=== PATIENT | male | born 1960 ===

== ENCOUNTER 2018-07-12 22:24 | Observation (INO) | payer MEDICAID, OTHER ==
[2018-07-12 22:32] VITALS: BMI 23.5
--- NOTE | 2018-07-12 23:01 | ED PDOC ---
Arrival/HPI - General Chief Complaint: Psychiatric Evaluation Time Seen by Provider: 07/12/18 22:25 Historian: Patient - History of Present Illness Narrative History of Present Illness (Text): 07/12/18 22:55 58 year old male, whose past medical history includes psychoaffective disorder, presents to the emergency department as a transfer from [facility] for psychiatric admission. Patient was being treated for alcohol abuse. Patient was medically cleared and accepted for admission prior to my assessment today. Upon arrival to the ER, patient was noted to have a CT at previous institution, that showed colitis, and patient was being treated with cipro-flagyl. Patient diagnosis of colitis precludes him from medical clearance. Patient denies any complaints. Patient denies any fevers, chills, headache, dizziness, chest pain, shortness of breath, dyspnea on exertion, cough, nausea, vomiting, back pain, neck pain, or any other complaint. 07/12/18 23:27 Time/Duration: Prior to Arrival Symptom Onset: Gradual Symptom Course: Unchanged Past Medical History - Provider Review Nursing Documentation Reviewed: Yes - Psychiatric Hx Substance Use: No Family/Social History - Physician Review Nursing Documentation Reviewed: Yes Family/Social History: No Known Family HX Smoking Status: Former Smoker Hx Alcohol Use: Yes Frequency of alcohol use: Daily Hx Substance Use: No Allergies/Home Meds Allergies/Adverse Reactions: Allergies No Known Allergies Allergy (Verified 07/12/18 22:32) Review of Systems - Physician Review All systems were reviewed & negative as marked: Yes - Review of Systems Constitutional: absent: Fevers, Night Sweats Respiratory: absent: SOB, Cough Cardiovascular: absent: Chest Pain Gastrointestinal: absent: Nausea, Vomiting Musculoskeletal: absent: Back Pain, Neck Pain Neurological: absent: Headache, Dizziness Physical Exam Vital Signs Reviewed: Yes Vital Signs Temp Pulse Resp BP Pulse Ox 07/12/18 22:31 98.7 F 90 18 158/80 H 96 Temperature: Afebrile Blood Pressure: Normal Pulse: Regular Respiratory Rate: Normal Appearance: Positive for: Well-Appearing, Non-Toxic, Comfortable Pain Distress: None Mental Status: Positive for: Alert and Oriented X 3 - Systems Exam Head: Present: Atraumatic, Normocephalic Pupils: Present: PERRL Extroacular Muscles: Present: EOMI Conjunctiva: Present: Normal Mouth: Present: Moist Mucous Membranes Neck: Present: Normal Range of Motion Respiratory/Chest: Present: Clear to Auscultation, Good Air Exchange. No: Respiratory Distress, Accessory Muscle Use Cardiovascular: Present: Regular Rate and Rhythm, Normal S1, S2. No: Murmurs Abdomen: No: Tenderness, Distention, Peritoneal Signs Back: Present: Normal Inspection Upper Extremity: Present: Normal Inspection. No: Cyanosis, Edema Lower Extremity: Present: Normal Inspection. No: Edema Neurological: Present: GCS=15, CN II-XII Intact, Speech Normal Skin: Present: Warm, Dry, Normal Color. No: Rashes Psychiatric: Present: Alert, Oriented x 3, Normal Insight, Normal Concentration Medical Decision Making ED Course and Treatment: 07/12/18 23:02 Impression: 58 year old male transferred for psych admission. Plan: -- Admission Prior Visits: Notes and results from previous visits were reviewed. Progress Notes: 07/12/18 23:27 ?colitis treated from previous insition. suspect likely 2/2 to etoh w/d, but as pt started empirically on antibitoics cannot medically clar. wwill go to medical floor. - Scribe Statement The provider has reviewed the documentation as recorded by the Peteribmatheus Mittal Provider Scribe Attestation: All medical record entries made by the Scribe were at my direction and personally dictated by me. I have reviewed the chart and agree that the record accurately reflects my personal performance of the history, physical exam, medical decision making, and the department course for this patient. I have also personally directed, reviewed, and agree with the discharge instructions and disposition. Disposition/Present on Arrival - Present on Arrival Any Indicators Present on Arrival: No History of DVT/PE: No History of Uncontrolled Diabetes: No Urinary Catheter: No History of Decub. Ulcer: No History Surgical Site Infection Following: None - Disposition Have Diagnosis and Disposition been Completed?: Yes Diagnosis: Colitis, Depression Disposition: HOSPITALIZED Disposition Time: 03:00 Condition: STABLE
--- NOTE | 2018-07-12 23:10 | CP.PCM.HP ---
<AshleighSatya - Last Filed: 07/13/18 00:46> History of Present Illness - History of Present Illness History of Present Illness: PGY-[address] History and Physical [address] Thurston cc: transfer from [facility]--alcohol abuse, abdominal pain [facility] need chart merging Patient is a 58 year old male with past medical history of HTN, alcohol abuse, psychoaffective disorder, depression, suicidal ideation presenting to the ED as a transfer from [facility]. Patient was being treated for alcohol abuse, started on cipro/flagyl at previous institution when CT abdomen/pelvis performed demonstrated colitis. Currently, patient endorses some abdominal pain primarily to the epigastric region as well as LLQ. No fevers/chills, headaches, dizziness, tremors, hallucinations, chest pain, palpitations, sob, cough, diarrhea/constipation, dysuria, or changes in stool. 12 pt ROS reviewed and otherwise negative. PMHx: alcohol abuse, HTN, psychoaffective disorder, suicidal ideation PSHx: denies Allergies: NKDA Home Meds: denies Family Hx: unknown Social Hx: drinks ~1 bottle of vodka daily, last drink was at 4 am yesterday. Denies tobacco or illicit drug use PMD: None Present on Admission - Present on Admission Any Indicators Present on Admission: No Review of Systems - Review of Systems All systems: reviewed and no additional remarkable complaints except Review of Systems: as per HPI Past Patient History - Past Social History Smoking Status: Former Smoker - PSYCHIATRIC Hx Substance Use: No Meds Allergies/Adverse Reactions: Allergies Allergy/AdvReac Type Severity Reaction Status Date / Time No Known Allergies Allergy Verified 07/13/18 17:01 Physical Exam - Constitutional Appears: Non-toxic, No Acute Distress - Head Exam Head Exam: ATRAUMATIC, NORMAL INSPECTION, NORMOCEPHALIC - Eye Exam Eye Exam: EOMI, Normal appearance, PERRL. absent: Scleral icterus Pupil Exam: NORMAL ACCOMODATION - ENT Exam ENT Exam: Mucous Membranes Dry, Normal Exam - Neck Exam Neck exam: Positive for: Full Rom, Normal Inspection. Negative for: Tenderness - Respiratory Exam Respiratory Exam: Clear to Auscultation Bilateral, NORMAL BREATHING PATTERN. absent: Accessory Muscle Use, Rales, Rhonchi, Wheezes, Respiratory Distress, Stridor - Cardiovascular Exam Cardiovascular Exam: REGULAR RHYTHM, +S1, +S2 - GI/Abdominal Exam GI & Abdominal Exam: Guarding (minimal voluntary guarding), Normal Bowel Sounds, Soft, Tenderness (epigastric; mild TTP RUQ, LLQ). absent: Distended, Firm, Rebound, Rigid - Extremities Exam Extremities exam: Positive for: normal capillary refill, normal inspection, pedal pulses present. Negative for: calf tenderness, pedal edema - Back Exam Back exam: NORMAL INSPECTION - Neurological Exam Neurological exam: Alert, CN II-XII Intact, Oriented x3 Additional comments: no tremors noted - Skin Skin Exam: Dry, Intact, Normal Color, Warm Results - Vital Signs Recent Vital Signs: Last Vital Signs Temp 98.7 F 07/12/18 22:31 Pulse 90 07/12/18 22:31 Resp 18 07/12/18 22:31 BP 158/80 H 07/12/18 22:31 Pulse Ox 96 07/12/18 22:31 Assessment & Plan - Assessment and Plan (Free Text) Assessment: 58 year old male with pmhx of alcohol abuse, HTN, psychoaffective disorder, depression, suicidal ideation presenting to ED as transfer from [facility] unit, being treated for alcohol abuse and abdominal pain with image findings of colitis. Plan: Abdominal pain -likely 2/2 colitis -Pertinent lab values on [facility] admission (07/12) -Lipase: 368 -AST/ALT: 135/63 -UDS negative -alcohol < 10 -Lipase on current admission: 380 -amylase wnl -trop x 1 negative -NS @ 100 cc/hr -zofran 4 mg IVP q6 prn -protonix 40 mg IVP daily -c/w cipro/flagyl for empiric abx coverage (Day 2) -CT abdomen/pelvis with oral and IV contrast (07/12): wall thickening of the R colon, correlate clinically for colitis. Hypoattenuation of the liver compatible with hepatic steatosis. Gallbladder distention, with no evident calcified gallstones. Urinary bladder distention. -CXR (07/12): no acute findings -EKG (07/12): accelerated junctional rhythm @ [address] depression, probably normal -repeat EKG Hepatic steatosis -AST/ALT 135/63 -CT findings as noted above -f/u abdominal u/s -f/u hepatitis panel Alcohol abuse -serum alcohol < 10 -no active signs of withdrawal on PE -CIWA protocol -neuro checks, seizure precautions -thiamine/MV/folate -NS @ 100 cc/hr -ativan 1 mg IVP q6 prn -continue to monitor for signs of withdrawal -alcohol cessation counseling HTN -BP 158/80 on admission -not on any home meds -continue to monitor Hx of Depression, suicidal ideation -Psych (Dr. Regalado) consulted -1:1 ordered PPx, Diet, Disposition -DVT ppx: scds -GI ppx: protonix 40 mg IVP daily -Diet: HHD <Tamika Thurston - Last Filed: 07/13/18 20:10> Results - Vital Signs Recent Vital Signs: Last Vital Signs Temp 98.7 F 07/13/18 07:00 Pulse 88 07/13/18 07:00 Resp 20 07/13/18 07:00 BP 147/81 07/13/18 07:00 Pulse Ox 96 07/13/18 07:00 - Labs Result Diagrams: 07/13/18 06:10 07/13/18 06:10 Labs: Laboratory Results - last 24 hr 07/12/18 07/12/18 07/13/18 23:41 23:41 06:10 WBC 4.5 RBC 4.43 Hgb 12.8 L Hct 38.4 L MCV 86.7 MCH 28.9 MCHC 33.3 RDW 13.2 Plt Count 125 MPV 10.1 Neut % (Auto) 59.9 Lymph % (Auto) 29.0 Rains % (Auto) 9.1 H Eos % (Auto) 1.6 Baso % (Auto) 0.4 Lymph # (Auto) 1.3 Rains # (Auto) 0.4 Eos # (Auto) 0.1 Baso # (Auto) 0.02 Absolute Neuts (auto) 2.70 Sodium Potassium Chloride Carbon Dioxide Anion Gap BUN Creatinine Est GFR ( Amer) Est GFR (Non-Af Amer) Random Glucose Hemoglobin A1c Calcium Phosphorus Magnesium Total Bilirubin AST ALT Alkaline Phosphatase Troponin I < 0.01 Total Protein Albumin Globulin Albumin/Globulin Ratio Triglycerides Cholesterol LDL Cholesterol Direct HDL Cholesterol Amylase 109 Lipase 380 H Hepatitis A IgM Ab Negative Hep Bs Antigen Negative Hep B Core IgM Ab Negative Hepatitis C Antibody Negative 07/13/18 07/13/18 06:10 06:10 WBC RBC Hgb Hct MCV MCH MCHC RDW Plt Count MPV Neut % (Auto) Lymph % (Auto) Rains % (Auto) Eos % (Auto) Baso % (Auto) Lymph # (Auto) Rains # (Auto) Eos # (Auto) Baso # (Auto) Absolute Neuts (auto) Sodium 134 Potassium 3.6 Chloride 98 Carbon Dioxide 28 Anion Gap 12 BUN 12 Creatinine 0.8 Est GFR ( Amer) > 60 Est GFR (Non-Af Amer) > 60 Random Glucose 101 Hemoglobin A1c 6.0 Calcium 8.5 Phosphorus 3.3 Magnesium 1.7 Total Bilirubin 0.7 AST 114 H ALT 71 H Alkaline Phosphatase 69 Troponin I Total Protein 6.3 Albumin 3.7 Globulin 2.6 Albumin/Globulin Ratio 1.4 Triglycerides 55 Cholesterol 171 LDL Cholesterol Direct 50 HDL Cholesterol 123 H Amylase Lipase Hepatitis A IgM Ab Hep Bs Antigen Hep B Core IgM Ab Hepatitis C Antibody Attending/Attestation - Attestation I have personally seen and examined this patient.: Yes I have fully participated in the care of the patient.: Yes I have reviewed all pertinent clinical information: Yes Notes (Text): 07/13/18 20:09 seen and examined. Discussed with resident. A&P as above. Transferred from [facility]. Has DX of colitis. Check record at [facility]. Add lipase.
[2018-07-12] MEDS ORDERED: Multivitamin (MVI) 10 ML, Thiamine 100 MG, Folic Acid 1 MG in Sodium Chloride 0.9% 1,00... IV ONE (23:11)
[2018-07-12] MEDS ORDERED: metroNIDAZOLE IV 500 mg/100 ml 500 MG/100 ML BAG IVPB SCH (23:15)
[2018-07-12] MEDS ORDERED: Ciprofloxacin 400mg/200ml D5W 400 MG/200 ML BAG IVPB SCH (23:15)
[2018-07-13 00:03] LABS: AMYLASE 109 U/L (35-125); LIPASE 380 U/L (23-300)
[2018-07-13 00:16] LABS: TROPONIN I < 0.01 ng/mL
[2018-07-13] MEDS ORDERED: Pneumococcal 23-Valent Vaccine IM ONE (03:20)
[2018-07-13] MEDS ORDERED: Pantoprazole 40 mg EC Tab PO SCH (06:00)
[2018-07-13 06:57] LABS: BASO # 0.02 K/mm3 (0.0-2.0); BASO % 0.4 % (0.0-3.0); EOS # 0.1 (0.0-0.7); EOS % 1.6 % (1.5-5.0); HEMOGLOBIN 12.8 g/dL (14.0-18.0); LYMPH # 1.3 (1.2-3.4); MEAN CELL VOLUME 86.7 fl (80.0-105.0); MEAN CORPUSCULAR HEMOGLOBIN 28.9 pg (25.0-35.0); MEAN CORPUSCULAR HGB CONC 33.3 g/dl (31.0-37.0); MEAN PLATELET VOLUME 10.1 fl (7.0-11.0); MONO # 0.4 (0.1-0.6); MONO % 9.1 % (1.0-6.0); RBC 4.43 10^6/uL (3.5-6.1); RED CELL DISTRIBUTION WIDTH 13.2 % (11.5-14.5); WHITE BLOOD COUNT 4.5 10^3/uL (4.5-11.0)
[2018-07-13 07:10] LABS: ALB/GLOB RATIO 1.4 (1.1-1.8); ALBUMIN 3.7 g/dL (3.0-4.8); ALT/SGPT 71 U/L (7-56); AST/SGOT 114 U/L (17-59); BLOOD UREA NITROGEN 12 mg/dL (7-21); CALCIUM 8.5 mg/dL (8.4-10.5); GFR NON-AFRICAN AMERICAN > 60
[2018-07-13 07:20] LABS: LDL CHOLESTEROL 50 mg/dL (0-129)
--- NOTE | 2018-07-13 07:21 | CP.PCM.PN ---
Subjective - Date & Time of Evaluation Date of Evaluation: 07/13/18 Time of Evaluation: 07:21 Objective - Vital Signs/Intake and Output Vital Signs (last 24 hours): Temp Pulse Resp BP Pulse Ox 98.2 F 80 18 148/86 100 07/13/18 01:59 07/13/18 01:59 07/13/18 03:10 07/13/18 01:59 07/13/18 01:59 Intake and Output: 07/13/18 07/13/18 06:59 18:59 Intake Total 400 Balance 400 - Medications Medications: Current Medications Cyanocobalamin (Vitamin B12 1000 Mcg Tab) 1,000 mcg PO DAILY [facility] Folic Acid (Folic Acid) 1 mg PO DAILY [facility] Metronidazole (Flagyl) 500 mg in 100 mls @ 100 mls/hr IVPB Q8 [facility]; Protocol Last Admin: 07/13/18 01:30 Dose: 100 mls/hr Multivitamins/Vitamin C 10 ml/Thiamine HCl 100 mg/ Folic Acid 1 mg/ Sodium Chloride 1,011.2 mls @ 100 mls/hr IV .Q10H7M ONE Stop: 07/13/18 09:17 Last Admin: 07/13/18 02:00 Dose: 100 mls/hr Lorazepam (Ativan) 1 mg IVP Q6H PRN; Protocol PRN Reason: Symptoms of alcohol withdrawl Multivitamins (Thera Tab) 1 tab PO DAILY [facility] Ondansetron HCl (Zofran Inj) 4 mg IVP Q6H PRN PRN Reason: Nausea/Vomiting Pantoprazole Sodium (Protonix Ec Tab) 40 mg PO 0600 [facility] Last Admin: 07/13/18 05:39 Dose: 40 mg - Labs Labs: 07/13/18 06:10 07/13/18 06:10
[2018-07-13 07:43] LABS: HDL CHOLESTEROL 123 mg/dL (29-60)
[2018-07-13 09:54] VITALS: BP 147/81; PULSE 88; RESP 20; TEMP 98.7; O2SAT 96
[2018-07-13] MEDS ORDERED: Multivitamin Therapeutic Tab PO SCH (10:00)
[2018-07-13] MEDS ORDERED: cefTRIAXone 1 gm 1 GM/100 ML BAG IVPB SCH (10:00)
--- NOTE | 2018-07-13 10:59 | US ---
Date of service: 07/13/2018 HISTORY: elevated LFTs ;EtOH abuse COMPARISON: None. TECHNIQUE: Sonographic evaluation of the abdomen. FINDINGS: LIVER: Measures 19.5 cm. Increased echogenicity of the liver parenchyma. No mass. No intrahepatic bile duct dilatation. GALLBLADDER: Unremarkable. No gallstones. COMMON BILE DUCT: Measures 5.7 mm. No stones. No dilatation. PANCREAS: Not visualized RIGHT KIDNEY: Measures 11.4 x 4.2 x 7.1cm. Normal echogenicity. No calculus, mass, or hydronephrosis. LEFT KIDNEY: Measures 12.1 x 6.6 x 6.1cm. Normal echogenicity. No calculus, mass, or hydronephrosis. SPLEEN: Normal in size and contour. No mass. 8.8 x 4.4 x 3.9 cm AORTA: Not visualized IVC: Not visualized OTHER FINDINGS: None. IMPRESSION: Unremarkable abdominal sonogram.
[2018-07-13 11:26] LABS: HEPATITIS B SURFACE AG Negative (NEGATIVE)
[2018-07-13 11:32] LABS: HEPATITIS A IGM NEGATIVE (NEGATIVE); HEPATITIS B CORE AB NEGATIVE (NEGATIVE)
[2018-07-13 11:43] LABS: HEPATITIS C ANTIBODY NEGATIVE (NEGATIVE)
--- NOTE | 2018-07-13 12:20 | CP.PCM.CON ---
History of Present Illness - History of Present Illness History of Present Illness: 58 year old male with PMH of HTN, alcohol abuse, psychoaffective disorder, depression was brought in from [facility] as a transfer for epigastric abdominal pain and lower abdominal pain. The patient drinks alcohol everyday. He was found to have pancreatitis at [facility] and was also noted to have possible colitis on CT A/P there. The patient states that the abdominal pain is still present but better, had nausea but is also better, no fever or chills, no chest pain, no SOB, no headache or dizziness, no diarrhea, no dysuria. Infectious Diseases consult is requested to further evaluate and manage. Review of Systems - Review of Systems All systems: reviewed and no additional remarkable complaints except (as per HPI) Past Patient History - Past Social History Smoking Status: Former Smoker - CARDIAC Hx Hypertension: Yes - MUSCULOSKELETAL/RHEUMATOLOGICAL Hx Falls: No - PSYCHIATRIC Hx Substance Use: No Meds Allergies/Adverse Reactions: Allergies Allergy/AdvReac Type Severity Reaction Status Date / Time No Known Allergies Allergy Verified 07/12/18 22:32 - Medications Medications: Current Medications Cyanocobalamin (Vitamin B12 1000 Mcg Tab) 1,000 mcg PO DAILY [facility] Folic Acid (Folic Acid) 1 mg PO DAILY [facility] Metronidazole (Flagyl) 500 mg in 100 mls @ 100 mls/hr IVPB Q8 [facility]; Protocol Last Admin: 07/13/18 01:30 Dose: 100 mls/hr Multivitamins/Vitamin C 10 ml/Thiamine HCl 100 mg/ Folic Acid 1 mg/ Sodium Chloride 1,011.2 mls @ 100 mls/hr IV .Q10H7M ONE Stop: 07/13/18 09:17 Last Admin: 07/13/18 02:00 Dose: 100 mls/hr Lorazepam (Ativan) 1 mg IVP Q6H PRN; Protocol PRN Reason: Symptoms of alcohol withdrawl Multivitamins (Thera Tab) 1 tab PO DAILY [facility] Ondansetron HCl (Zofran Inj) 4 mg IVP Q6H PRN PRN Reason: Nausea/Vomiting Pantoprazole Sodium (Protonix Ec Tab) 40 mg PO 0600 [facility] Last Admin: 07/13/18 05:39 Dose: 40 mg Physical Exam - Constitutional Appears: No Acute Distress, Chronically Ill - Head Exam Head Exam: NORMAL INSPECTION - ENT Exam ENT Exam: Mucous Membranes Moist - Neck Exam Neck exam: Negative for: Lymphadenopathy, Meningismus - Respiratory Exam Respiratory Exam: Decreased Breath Sounds - Cardiovascular Exam Cardiovascular Exam: +S1, +S2 - GI/Abdominal Exam GI & Abdominal Exam: Soft. absent: Tenderness Results - Vital Signs Recent Vital Signs: Last Vital Signs Temp 98.2 F 07/13/18 01:59 Pulse 80 07/13/18 01:59 Resp 18 07/13/18 03:10 BP 148/86 07/13/18 01:59 Pulse Ox 100 07/13/18 01:59 - Labs Result Diagrams: 07/13/18 06:10 07/13/18 06:10 Labs: Laboratory Results - last 24 hr 07/12/18 23:41 Troponin I < 0.01 Amylase 109 Lipase 380 H Assessment & Plan - Assessment and Plan (Free Text) Plan: Assessment Acute pancreatitis, probably alcoholic R/O colitis HTN alcohol abuse psychoaffective disorder depression Plan started Rocephin and Flagyl follow up blood cx reviewed CT A/P - patient does not have diarrhea monitor abdominal pain
--- NOTE | 2018-07-13 13:20 | CP.PCM.DIS ---
<Flip Bernabe - Last Filed: 07/13/18 21:27> Provider - Provider Date of Admission: 07/12/18 22:52 Attending physician: Sean Andre MD Consults: 07/12/18 23:09 Psychiatry Consult Routine Comment: Consulting Provider: Cynthia Regalado Consulting Physician: Cynthia Regalado Reason for Consult: depression and suicidal ideations 07/12/18 23:22 Infectious Disease Consult Routine Comment: Consulting Provider: Solis Hannah Consulting Physician: Solis Hannah Reason for Consult: colitis on CT 07/13/18 03:27 Social Work Referral Routine Comment: DRINKS VODKA PER DAY Physician Instructions: Reason For Exam: FOR ALCOHOL COUNSELING Time Spent in preparation of Discharge (in minutes): 45 Diagnosis - Discharge Diagnosis (1) Colitis Status: Acute (2) Depression Status: Chronic (3) Alcohol abuse Status: Chronic Hospital Course - Lab Results Lab Results: Most Recent Lab Values WBC 4.5 10^3/uL (4.5-11.0) 07/13/18 06:10 RBC 4.43 10^6/uL (3.5-6.1) 07/13/18 06:10 Hgb 12.8 g/dL (14.0-18.0) L 07/13/18 06:10 Hct 38.4 % (42.0-52.0) L 07/13/18 06:10 MCV 86.7 fl (80.0-105.0) 07/13/18 06:10 MCH 28.9 pg (25.0-35.0) 07/13/18 06:10 MCHC 33.3 g/dl (31.0-37.0) 07/13/18 06:10 RDW 13.2 % (11.5-14.5) 07/13/18 06:10 Plt Count 125 10^3/uL (120.0-450.0) 07/13/18 06:10 MPV 10.1 fl (7.0-11.0) 07/13/18 06:10 Neut % (Auto) 59.9 % (50.0-68.0) 07/13/18 06:10 Lymph % (Auto) 29.0 % (22.0-35.0) 07/13/18 06:10 [place] % (Auto) 9.1 % (1.0-6.0) H 07/13/18 06:10 Eos % (Auto) 1.6 % (1.5-5.0) 07/13/18 06:10 Baso % (Auto) 0.4 % (0.0-3.0) 07/13/18 06:10 Lymph # (Auto) 1.3 (1.2-3.4) 07/13/18 06:10 [place] # (Auto) 0.4 (0.1-0.6) 07/13/18 06:10 Eos # (Auto) 0.1 (0.0-0.7) 07/13/18 06:10 Baso # (Auto) 0.02 K/mm3 (0.0-2.0) 07/13/18 06:10 Absolute Neuts (auto) 2.70 (1.4-6.5) 07/13/18 06:10 Sodium 134 mmol/L (132-148) 07/13/18 06:10 Potassium 3.6 mmol/L (3.6-5.0) 07/13/18 06:10 Chloride 98 mmol/L (98-107) 07/13/18 06:10 Carbon Dioxide 28 mmol/L (21-33) 07/13/18 06:10 Anion Gap 12 (10-20) 07/13/18 06:10 BUN 12 mg/dL (7-21) 07/13/18 06:10 Creatinine 0.8 mg/dl (0.8-1.5) 07/13/18 06:10 Est GFR ( Amer) > 60 07/13/18 06:10 Est GFR (Non-Af Amer) > 60 07/13/18 06:10 Random Glucose 101 mg/dL (70-110) 07/13/18 06:10 Hemoglobin A1c 6.0 % (4.2-6.5) 07/13/18 06:10 Calcium 8.5 mg/dL (8.4-10.5) 07/13/18 06:10 Phosphorus 3.3 mg/dL (2.5-4.5) 07/13/18 06:10 Magnesium 1.7 mg/dL (1.7-2.2) 07/13/18 06:10 Total Bilirubin 0.7 mg/dL (0.2-1.3) 07/13/18 06:10 AST 114 U/L (17-59) H 07/13/18 06:10 ALT 71 U/L (7-56) H 07/13/18 06:10 Alkaline Phosphatase 69 U/L (38-126) 07/13/18 06:10 Troponin I < 0.01 ng/mL 07/12/18 23:41 Total Protein 6.3 g/dL (5.8-8.3) 07/13/18 06:10 Albumin 3.7 g/dL (3.0-4.8) 07/13/18 06:10 Globulin 2.6 gm/dL 07/13/18 06:10 Albumin/Globulin Ratio 1.4 (1.1-1.8) 07/13/18 06:10 Triglycerides 55 mg/dL (35-160) 07/13/18 06:10 Cholesterol 171 mg/dL (130-200) 07/13/18 06:10 LDL Cholesterol Direct 50 mg/dL (0-129) 07/13/18 06:10 HDL Cholesterol 123 mg/dL (29-60) H 07/13/18 06:10 Amylase 109 U/L (35-125) 07/12/18 23:41 Lipase 380 U/L (23-300) H 07/12/18 23:41 Hepatitis A IgM Ab Negative (NEGATIVE) 07/12/18 23:41 Hep Bs Antigen Negative (NEGATIVE) 07/12/18 23:41 Hep B Core IgM Ab Negative (NEGATIVE) 07/12/18 23:41 Hepatitis C Antibody Negative (NEGATIVE) 07/12/18 23:41 - Hospital Course Hospital Course: Patient is a 58 year old male with past medical history of HTN, alcohol abuse, psychoaffective disorder, depression, suicidal ideation presenting to the ED as a transfer from [facility]. Patient was accepted to the psychiatric unit at [facility] but there were no beds available. Patient was being treated for alcohol abuse, started on cipro/flagyl for colitis that was showed on abdomen/pelvis CT scan. Patient was continued on cipro and flagyl. Patient was kept 1:1 observation for his suicidal ideation which was discontinued prior to discharge. Patient's abdominal pain resolved upon discharge. Patient was started on daily MV, folate, and thiamine. Patient was started on 7 days course of Flagyl and Vantin. Patient is medically stable to be discharged to voluntary psychiatric unit. Discharge Exam - Additional Findings Additional findings: - Constitutional Appears: Non-toxic, No Acute Distress - Head Exam Head Exam: ATRAUMATIC, NORMAL INSPECTION, NORMOCEPHALIC - Eye Exam Eye Exam: EOMI, Normal appearance, PERRL. absent: Scleral icterus Pupil Exam: NORMAL ACCOMODATION - ENT Exam ENT Exam: Mucous Membranes Dry, Normal Exam - Neck Exam Neck exam: Positive for: Full Rom, Normal Inspection. Negative for: Tenderness - Respiratory Exam Respiratory Exam: Clear to Auscultation Bilateral, NORMAL BREATHING PATTERN. absent: Accessory Muscle Use, Rales, Rhonchi, Wheezes, Respiratory Distress, Stridor - Cardiovascular Exam Cardiovascular Exam: REGULAR RHYTHM, +S1, +S2 - GI/Abdominal Exam GI & Abdominal Exam: Normal Bowel Sounds, Soft, No tenderness to palpation. absent: Distended, Firm, Rebound, Rigid - Extremities Exam Extremities exam: Positive for: normal capillary refill, normal inspection, pedal pulses present. Negative for: calf tenderness, pedal edema - Back Exam Back exam: NORMAL INSPECTION - Neurological Exam Neurological exam: Alert, CN II-XII Intact, Oriented x3 Additional comments: no tremors noted Discharge Plan - Follow Up Plan Condition: STABLE Disposition: DISCHARGE TO PSYCH HOSPITAL Instructions: Depression, Adult (DC), Colitis (DC) Additional Instructions: - Take Vantin 200mg twice daily for 7 more days and Flagyl 500mg 3 times daily for 7 more days. - Take multivitamin, folate, and thiamine daily. - Resume all other home medications as prescribed by your doctor. - Follow up with your primary care doctor within 3-5 days of discharge from the hospital. - Stop drinking alcohol as we have discussed. - Return to the emergency room for newly or worsening symptoms. <Sean Andre - Last Filed: 07/14/18 11:59> Provider - Provider Date of Admission: 07/12/18 22:52 Attending physician: Sean Andre MD Consults: 07/12/18 23:09 Psychiatry Consult Routine Comment: Consulting Provider: Cynthia Regalado Consulting Physician: Cynthia Regalado Reason for Consult: depression and suicidal ideations 07/12/18 23:22 Infectious Disease Consult Routine Comment: Consulting Provider: Solis Hannah Consulting Physician: Solis Hannah Reason for Consult: colitis on CT 07/13/18 03:27 Social Work Referral Routine Comment: DRINKS VODKA PER DAY Physician Instructions: Reason For Exam: FOR ALCOHOL COUNSELING Hospital Course - Lab Results Lab Results: Micro Results 07/13/18 08:50 Blood-Venous Blood Culture - Preliminary NO GROWTH AFTER 24 HOURS 07/13/18 08:30 Blood-Venous Blood Culture - Preliminary NO GROWTH AFTER 24 HOURS Most Recent Lab Values WBC 4.5 10^3/uL (4.5-11.0) 07/13/18 06:10 RBC 4.43 10^6/uL (3.5-6.1) 07/13/18 06:10 Hgb 12.8 g/dL (14.0-18.0) L 07/13/18 06:10 Hct 38.4 % (42.0-52.0) L 07/13/18 06:10 MCV 86.7 fl (80.0-105.0) 07/13/18 06:10 MCH 28.9 pg (25.0-35.0) 07/13/18 06:10 MCHC 33.3 g/dl (31.0-37.0) 07/13/18 06:10 RDW 13.2 % (11.5-14.5) 07/13/18 06:10 Plt Count 125 10^3/uL (120.0-450.0) 07/13/18 06:10 MPV 10.1 fl (7.0-11.0) 07/13/18 06:10 Neut % (Auto) 59.9 % (50.0-68.0) 07/13/18 06:10 Lymph % (Auto) 29.0 % (22.0-35.0) 07/13/18 06:10 [place] % (Auto) 9.1 % (1.0-6.0) H 07/13/18 06:10 Eos % (Auto) 1.6 % (1.5-5.0) 07/13/18 06:10 Baso % (Auto) 0.4 % (0.0-3.0) 07/13/18 06:10 Lymph # (Auto) 1.3 (1.2-3.4) 07/13/18 06:10 [place] # (Auto) 0.4 (0.1-0.6) 07/13/18 06:10 Eos # (Auto) 0.1 (0.0-0.7) 07/13/18 06:10 Baso # (Auto) 0.02 K/mm3 (0.0-2.0) 07/13/18 06:10 Absolute Neuts (auto) 2.70 (1.4-6.5) 07/13/18 06:10 Sodium 134 mmol/L (132-148) 07/13/18 06:10 Potassium 3.6 mmol/L (3.6-5.0) 07/13/18 06:10 Chloride 98 mmol/L (98-107) 07/13/18 06:10 Carbon Dioxide 28 mmol/L (21-33) 07/13/18 06:10 Anion Gap 12 (10-20) 07/13/18 06:10 BUN 12 mg/dL (7-21) 07/13/18 06:10 Creatinine 0.8 mg/dl (0.8-1.5) 07/13/18 06:10 Est GFR ( Amer) > 60 07/13/18 06:10 Est GFR (Non-Af Amer) > 60 07/13/18 06:10 Random Glucose 101 mg/dL (70-110) 07/13/18 06:10 Hemoglobin A1c 6.0 % (4.2-6.5) 07/13/18 06:10 Calcium 8.5 mg/dL (8.4-10.5) 07/13/18 06:10 Phosphorus 3.3 mg/dL (2.5-4.5) 07/13/18 06:10 Magnesium 1.7 mg/dL (1.7-2.2) 07/13/18 06:10 Total Bilirubin 0.7 mg/dL (0.2-1.3) 07/13/18 06:10 AST 114 U/L (17-59) H 07/13/18 06:10 ALT 71 U/L (7-56) H 07/13/18 06:10 Alkaline Phosphatase 69 U/L (38-126) 07/13/18 06:10 Troponin I < 0.01 ng/mL 07/12/18 23:41 Total Protein 6.3 g/dL (5.8-8.3) 07/13/18 06:10 Albumin 3.7 g/dL (3.0-4.8) 07/13/18 06:10 Globulin 2.6 gm/dL 07/13/18 06:10 Albumin/Globulin Ratio 1.4 (1.1-1.8) 07/13/18 06:10 Triglycerides 55 mg/dL (35-160) 07/13/18 06:10 Cholesterol 171 mg/dL (130-200) 07/13/18 06:10 LDL Cholesterol Direct 50 mg/dL (0-129) 07/13/18 06:10 HDL Cholesterol 123 mg/dL (29-60) H 07/13/18 06:10 Amylase 109 U/L (35-125) 07/12/18 23:41 Lipase 380 U/L (23-300) H 07/12/18 23:41 Hepatitis A IgM Ab Negative (NEGATIVE) 07/12/18 23:41 Hep Bs Antigen Negative (NEGATIVE) 07/12/18 23:41 Hep B Core IgM Ab Negative (NEGATIVE) 07/12/18 23:41 Hepatitis C Antibody Negative (NEGATIVE) 07/12/18 23:41 Attending/Attestation - Attestation I have personally seen and examined this patient.: Yes I have fully participated in the care of the patient.: Yes I have reviewed all pertinent clinical information, including history, physical exam and plan: Yes Notes (Text): 07/14/18 11:57 Medical record note made by the resident after discussion with my direction and input after the patient was personally seen and examined by me. I have reviewed the chart and agree that the record accurately reflects by personal performance of the history, physical exam, data review, and medical decision-making, in the course for the patient. I have also personally directed the plan of care. 58 yrs old male with PMH of alcohol abuse and depression was admitted to medical floor for possible colitis. He is not having any abdominal pain, tolerating regular food. We will switch him to oral antibiotics levofloxacin and metronidazole. Elevated LFT are due to alcohol abuse. Patient is cleared medically and will be transferred to inpatient Psychiatry. Case was discuused with .
--- NOTE | 2018-07-13 15:04 | CON ---
DATE OF CONSULTATION: 07/13/2018 HISTORY OF PRESENT ILLNESS: In short, the patient is a 58-year-old male with history of mood spectrum disorder, also alcohol use disorder. The patient was transferred from [facility] for evaluation of depression, also possible suicidal ideation, and psych admission, brought in the emergency room based on CT scan of the abdomen, the patient was found to have colitis and the patient require medical admission. This appeals writer is following the patient on the medical side today. The patient presented to be alert, depressed. The patient reported that his withdrawal symptoms are a little bit better. The patient was drinking about 1 liter of vodka a day. The patient reported that he was drinking because he was feeling very depressed. He was drinking also because he wanted his heart to stop beating, and indirectly, the patient wanted to kill himself, on top of that for the past week, the patient was thinking either to jump in front of the traffic or drink himself to . The patient reported no psych admission and no suicidal attempts, but had suicidal ideation in 2010 when the patient wanted to kill himself by slitting his throat with a knife or jump in front of the traffic. During the interview, the patient also reported that recently he was feeling that he wanted to kill himself by gunshot, he was thinking to grab a gun from police investigator and shoot himself or act in a way that he will be killed by police. That is why the patient came to the hospital looking for help for his suicidal ideation, and during the interview, the patient contracted for safety. The patient reported that right now he feels comfortable and wants to get treatment for his depression as well as for alcohol abuse, and he is willing to go to inpatient rehab. PHYSICAL EXAMINATION: VITAL SIGNS: Reviewed. Temperature 98.7, pulse is 88, blood pressure 147/81, respirations 20, and oxygen saturation is 96. MEDICATIONS: Reviewed. The patient is on Rocephin, vitamin B12, folic acid, Ativan 1 mg IV push every 6 hours p.r.n., Flagyl, Zofran, and Protonix. This appeals writer will implement Sonata at the nighttime as needed for insomnia. MENTAL STATUS EXAMINATION: The patient presented to be alert and oriented, pleasant. Mood described as depressed. Affect was constricted, but reactive and mood congruent. Thought process seems to be circumstantial. Thought content, the patient denied visual, auditory, or tactile hallucinations. Denied paranoid ideation. The patient denied thoughts of harming himself during the interview, but prior to coming to the hospital, the patient had suicidal ideation with a plan to grab a gun from the police and kill himself or jump in front of the traffic, but the patient reported that he did not have any intent or he does not want his act to effect others, that is why he did not act on his thoughts. The patient denied access to guns. Insight and judgment seemed to be improving. Impulses are fairly controlled as of now. IMPRESSION: Rule out major depressive disorder, rule out substance-induced mood disorder. The patient has long history of alcohol use disorder. The patient also has withdrawal symptoms, which are under control now. PLAN: The patient will continue staying on the medical side for full medical clearance. Multivitamins, thiamine, and folic acid started. The patient might benefit from psych admission. This appeals writer will implement Sonata at the nighttime as well as Celexa for his depression. Whenever the patient is clear from the medical side, we will transfer the patient to the Psychiatric Inpatient Unit. Should you have any questions give me a call back. Thank you very much for letting me participate in care of your patient. Cynthia Regalado MD
--- NOTE | 2018-07-13 23:58 | CARD ---
APPROVED REPORT Date of service: 07/12/2018 EKG Measurement Heart [id number] <Conclusion> Normal sinus rhythm Normal ECG
[2018-07-14] MEDS ORDERED: Cefpodoxime (Vantin) 200 mg Tab PO SCH (10:00)
== END 2018-07-13 16:03 ==
LOC: ED 22:24 → INTOOBSV 22:52 → ERH 22:52 → UNDOADMIN 22:55 → ERH 07-13 01:21 → 3RNO 07-13 02:30
PROVIDERS: ADMIT Internal Medicine; ATTEND Internal Medicine
DX: K52.9 Noninfective gastroenteritis and colitis, unspecified (principal); K85.90 Acute pancreatitis without necrosis or infection, unspecified; F32.9 Major depressive disorder, single episode, unspecified; F10.10 Alcohol abuse, uncomplicated; I10 Essential (primary) hypertension; R45.851 Suicidal ideations; Z87.891 Personal history of nicotine dependence
CPT/HCPCS: 36415; 76700; 80053; 80061; 80074; 82150; 83036; 83690; 83735; 84100; 84484; 85025; 87040; 93005; 96365; 96375; 99284; G0378; J0696; J0744; J3411; J7030

== ENCOUNTER 2018-07-13 16:05 | Inpatient (IN) | payer MEDICAID, OTHER ==
[2018-07-12 22:32] VITALS: BMI 23.5
[2018-07-13] MEDS: Cefpodoxime (Vantin) 200 mg Tab PO SCH (18:38)
--- NOTE | 2018-07-13 21:34 | PCM.BM ---
<PolyJania - Last Filed: 07/13/18 21:29> Treatment Plan Problems - Problems identified on initial assessmt SUICIDALIDEATION Date Initiated: 07/13/18 Time Initiated: 21:34 Assessment reference: NA Status: Active FEELINGS OF WORTHELESSNESS Date Initiated: 07/13/18 Time Initiated: 21:35 Assessment reference: NA Status: Active HOPELESNESS/HELPLESSNESS Date Initiated: 07/13/18 Time Initiated: 21:36 Assessment reference: NA Status: Active ALTERD SLEEP PATTERN Date Initiated: 07/13/18 Time Initiated: 21:37 Assessment reference: NA Status: Active MEDICATIONNON ADHERENCE Date Initiated: 07/13/18 Time Initiated: 21:38 Assessment reference: NA Status: Active INEFFECTIVE COPING Date Initiated: 07/13/18 Time Initiated: 21:39 Assessment reference: NA Status: Active Treatment assets and liabiliti Patient Assests: adapts well, ADL independent, good support system, negotiates basic needs Patient Liabilities: substance abuse, language/speech - Milieu Protocol Maintain good personal hygiene: daily Encourage regular showers, daily Remind patient to perform daily oral care, daily Assist patient to perform ADL's Maintain personal safety: every shift Educate patient to report safety concerns to staff, every shift Monitor environment for contraband/sharps Medication safety: Monitor for expected outcome, potential side effects: every shift, Assess barriers to learning: every shift, Assess readiness for medication education: every shift Family Contact - Goals for Treatment Patient goals for treatment: TO BECOME A NORMAL PERSON AND HAVE A DIFFERENT OUTLOOK IN LIFE Discharge/Continuing Care - Education Needs Education Needs: Patient Medication, Patient Diagnosis/Disease Process, Patient Coping Skills, Patient Community resources, Patient Personal Hygiene/Grooming, Patient Aftercare Safety Plan - Discharge Discharge Criteria: Tolerates medication w/o severe side effects, Free of paranoid thoughts, Normal sleep pattern, Ability to care for self <Roland Preciado - Last Filed: 07/14/18 11:12> - Diagnosis (1) Alcohol abuse Status: Chronic Interventions: group, milieu and supportive tx Appreciate f/u by Dr. Bernabe on 07/14/18 Celexa 10 mg po dailly for depression Ativan 2 mg po QID for alcohol withdrawal, to taper as tolerated. Consider naltrexone if patient is motivated/interested Sonata 5 mg po HS prn: insomnia 07/14/18 11:12 (2) Depression Status: Chronic Interventions: group, milieu and supportive tx * Appreciate f/u by Dr. Bernabe on 07/14/18 * Celexa 10 mg po dailly for depression * Ativan 2 mg po QID for alcohol withdrawal, to taper as tolerated. Consider naltrexone if patient is motivated/interested * Sonata 5 mg po HS prn: insomnia 07/14/18 11:12 <Silvana Malone - Last Filed: 07/16/18 16:37>
[2018-07-14] MEDS: Pantoprazole 40 mg EC Tab PO SCH (05:44)
[2018-07-14] MEDS: Cefpodoxime (Vantin) 200 mg Tab PO SCH ×2 (05:44→17:20)
--- NOTE | 2018-07-14 07:04 | CP.PCM.CON ---
<Flip Bernabe - Last Filed: 07/14/18 11:18> History of Present Illness - History of Present Illness History of Present Illness: PGY-1 Medicine consult note for Dr. Andre Consulting physician: Dr. Regalado Reason for consult: Medical follow up Patient is a 58 year old male with past medical history of HTN, alcohol abuse, psychoaffective disorder, depression, suicidal ideation presenting to the ED as a transfer from [facility]. Patient was accepted to the psychiatric unit at [facility] but there were no beds available. Patient was being treated for alcohol abuse, started on cipro/flagyl for colitis that was showed on abdomen/pelvis CT scan. Patient was discharged to voluntary psychiatric unit. PMHx: alcohol abuse, HTN, psychoaffective disorder, suicidal ideation PSHx: denies Allergies: NKDA Home Meds: denies Family Hx: unknown Social Hx: drinks ~1 bottle of vodka daily, last drink was at 4 am yesterday. Denies tobacco or illicit drug use PMD: None Past Patient History - Past Social History Smoking Status: Former Smoker - CARDIAC Hx Cardiac Disorders: No Hx Hypertension: Yes - PULMONARY Hx Respiratory Disorders: No - NEUROLOGICAL Hx Neurological Disorder: No - HEENT Hx HEENT Problems: No - RENAL Hx Chronic Kidney Disease: No - ENDOCRINE/METABOLIC Hx Endocrine Disorders: No - HEMATOLOGICAL/ONCOLOGICAL Hx Blood Disorders: No - INTEGUMENTARY Hx Dermatological Problems: No - MUSCULOSKELETAL/RHEUMATOLOGICAL Hx Falls: No - GASTROINTESTINAL Hx Colitis: Yes - GENITOURINARY/GYNECOLOGICAL Hx Genitourinary Disorders: No - PSYCHIATRIC Hx Substance Use: Yes - SURGICAL HISTORY Hx Surgeries: No Meds Allergies/Adverse Reactions: Allergies Allergy/AdvReac Type Severity Reaction Status Date / Time No Known Allergies Allergy Verified 07/13/18 17:01 - Medications Medications: Current Medications Cefpodoxime Proxetil (Vantin) 200 mg PO Q12 [facility]; Protocol Stop: 07/20/18 18:01 Last Admin: 07/14/18 05:44 Dose: 200 mg Citalopram Hydrobromide (Celexa) 10 mg PO DAILY [facility] Cyanocobalamin (Vitamin B12 1000 Mcg Tab) 1,000 mcg PO DAILY [facility] Folic Acid (Folic Acid) 1 mg PO DAILY [facility] Lorazepam (Ativan) 2 mg PO QID [facility]; Protocol Last Admin: 07/13/18 22:09 Dose: 2 mg Metronidazole (Flagyl) 500 mg PO Q8 [facility]; Protocol Stop: 07/20/18 22:01 Last Admin: 07/14/18 05:43 Dose: 500 mg Multivitamins (Thera Tab) 1 tab PO 0800 [facility] Ondansetron HCl (Zofran Tab) 4 mg PO TID PRN PRN Reason: Nausea/Vomiting Pantoprazole Sodium (Protonix Ec Tab) 40 mg PO 0600 [facility] Last Admin: 07/14/18 05:44 Dose: 40 mg Thiamine HCl (Vitamin B1 Tab) 100 mg PO DAILY [facility] Zaleplon (Sonata) 5 mg PO HS PRN PRN Reason: Insomnia Physical Exam - Additional Findings Additional findings: - Constitutional Appears: Non-toxic, No Acute Distress - Head Exam Head Exam: ATRAUMATIC, NORMAL INSPECTION, NORMOCEPHALIC - Eye Exam Eye Exam: EOMI, Normal appearance, PERRL. absent: Scleral icterus Pupil Exam: NORMAL ACCOMODATION - ENT Exam ENT Exam: Mucous Membranes Dry, Normal Exam - Neck Exam Neck exam: Positive for: Full Rom, Normal Inspection. Negative for: Tenderness - Respiratory Exam Respiratory Exam: Clear to Auscultation Bilateral, NORMAL BREATHING PATTERN. absent: Accessory Muscle Use, Rales, Rhonchi, Wheezes, Respiratory Distress, Stridor - Cardiovascular Exam Cardiovascular Exam: REGULAR RHYTHM, +S1, +S2 - GI/Abdominal Exam GI & Abdominal Exam: Normal Bowel Sounds, Soft, No tenderness to palpation. absent: Distended, Firm, Rebound, Rigid - Extremities Exam Extremities exam: Positive for: normal capillary refill, normal inspection, peda l pulses present. Negative for: calf tenderness, pedal edema - Back Exam Back exam: NORMAL INSPECTION - Neurological Exam Neurological exam: Alert, CN II-XII Intact, Oriented x3 Additional comments: no tremors noted Results - Vital Signs Recent Vital Signs: Last Vital Signs Temp 98 F 07/13/18 16:10 Pulse 83 07/13/18 20:42 Resp 18 07/13/18 20:42 BP 148/85 07/13/18 16:10 Pulse Ox Assessment & Plan - Assessment and Plan (Free Text) Assessment: Patient is a 58 year old male with past medical history of HTN, alcohol abuse, psychoaffective disorder, depression, suicidal ideation admitted to psychiatry for suicidal ideation. Plan: Colitis - PO Vantin and PO Flagyl for 7 more days - Follow up with a carton liner as outpatient in 6-8 weeks for a colonoscopy Transaminitis - Likely 2/2 ETOH abuse - Will repeat CMP Alcohol abuse - Daily MV, folate, Thiamine Depression with suicidal ideation - Management as per psych Medicine will sign off at this time, please re-consult as needed. Patient seen and case discussed with attending, Dr. Andre. Flip Bernabe, PGY-1 <Sean Andre - Last Filed: 07/14/18 12:06> Meds - Medications Medications: Current Medications Cefpodoxime Proxetil (Vantin) 200 mg PO Q12 [facility]; Protocol Stop: 07/20/18 18:01 Last Admin: 07/14/18 05:44 Dose: 200 mg Citalopram Hydrobromide (Celexa) 10 mg PO DAILY [facility] Last Admin: 07/14/18 08:59 Dose: 10 mg Cyanocobalamin (Vitamin B12 1000 Mcg Tab) 1,000 mcg PO DAILY [facility] Last Admin: 07/14/18 09:00 Dose: 1,000 mcg Folic Acid (Folic Acid) 1 mg PO DAILY [facility] Last Admin: 07/14/18 09:00 Dose: 1 mg Lorazepam (Ativan) 2 mg PO QID [facility]; Protocol Last Admin: 07/14/18 09:00 Dose: 2 mg Metronidazole (Flagyl) 500 mg PO Q8 [facility]; Protocol Stop: 07/20/18 22:01 Last Admin: 07/14/18 05:43 Dose: 500 mg Multivitamins (Thera Tab) 1 tab PO 0800 [facility] Last Admin: 07/14/18 09:00 Dose: 1 tab Ondansetron HCl (Zofran Tab) 4 mg PO TID PRN PRN Reason: Nausea/Vomiting Pantoprazole Sodium (Protonix Ec Tab) 40 mg PO 0600 [facility] Last Admin: 07/14/18 05:44 Dose: 40 mg Thiamine HCl (Vitamin B1 Tab) 100 mg PO DAILY [facility] Last Admin: 07/14/18 09:01 Dose: 100 mg Zaleplon (Sonata) 5 mg PO HS PRN PRN Reason: Insomnia Results - Vital Signs Recent Vital Signs: Last Vital Signs Temp 98.1 F 07/14/18 07:00 Pulse 84 04/20/19 07:00 Resp 20 07/14/18 07:00 BP 130/87 07/14/18 07:00 Pulse Ox Attending/Attestation - Attestation I have personally seen and examined this patient.: Yes I have fully participated in the care of the patient.: Yes I have reviewed all pertinent clinical information: Yes Notes (Text): 07/14/18 12:02 Medical record note made by the resident after discussion with my direction and input after the patient was personally seen and examined by me. I have reviewed the chart and agree that the record accurately reflects by personal performance of the history, physical exam, data review, and medical decision-making, in the course for the patient. I have also personally directed the plan of care. 58 yrs old male with PMH of alcohol abuse and depression was transferred for [facility] for Psychiatric admission but patient was admitted to medical floor for possible colitis.He was not having any abdominal pain, tolerating regular food. Antibiotics were switched to oral Levofloxacin and Flagyl for total 10 days treatment.Patient abdominal examination is benign. He will need Colonoscopy in 6-8 weeks with GI. Elevated LFT are due to alcohol abuse. There is no active medical issue at this time. We will sign off. Please call us back if any question.
[2018-07-14] MEDS: Multivitamin Therapeutic Tab PO SCH (09:00)
--- NOTE | 2018-07-14 11:12 | PCM.PSYCH ---
Initial Psychiatric Evaluation - Initial Psychiatric Evaluation Type of Admission: Voluntary Legal Status: Capacity History of Present Illness and Precipitating Events: Patient is a 58 yo male, primarily Setsw[place]-speaking with history of Mood Spectrum Disorder, Alcohol Use Disorder, likely contribution of Substance- Induced Mood Disorder, no prior psychiatric admissions or SA who was transferred from the medical floor yesterday 07/13/18, for treatment of depression and continued treatment of alcohol withdrawal symptoms. Of note: patient was initially transferred from [facility] for a psychiatric admission however he was medically admitted from 07/12/18-07/13/[address] of the abdomen revealed colitis. Dr. Regalado consulted with him on 07/13/18 and implemented Celexa 10 mg po daily for depression and Sonata qhs for insomnia. He is also being treated for alcohol withdrawals. Patient expressed he was depressed and hopeless. Indicated that he was drinking a liter of vodka daily as a wish but he also had thoughts of jumping in front of traffic or grabbing a police officer crime prevention's gun to shoot himself. Staff notes indicate that patient has been in good control and there have been no management issues since his arrival. Staff utilized [employer] business project analyst #[id number] to communicate. This provider use [employer] "speak and translate" to help with translation. Patient is depressed and reports that he drinks alcohol to cope with his depression. He doesn't have any hallucinations or suicidal thoughts at this time. He slept well and has been tolerating medications prescribed thus far. His comprehension of my questioning is good and responses are relevant. He doesn't appear to be in any physical distress however his affect is depressed and constricted, congruent to reported mood. PSYCHIATRIC HISTORY Denies prior psychiatric admissions or SA Patient had SI to slit his throat or jump in front of traffic in 2010 Possible admission to [facility], however this appears related to detox The patient failed the outpatient lower level of care: Yes Current Medications: Active Medications Generic Name Dose Route Start Last Admin Trade Name Freq PRN Reason Stop Dose Admin Cefpodoxime Proxetil 200 mg 07/13/18 18:00 07/13/18 18:38 Vantin PO 07/20/18 18:01 200 mg Q12 [facility] Administration Protocol Citalopram Hydrobromide 10 mg 07/14/18 08:00 Celexa PO DAILY [facility] Cyanocobalamin 1,000 mcg 07/14/18 08:00 Vitamin B12 1000 Mcg Tab PO DAILY [facility] Folic Acid 1 mg 07/14/18 08:00 Folic Acid PO DAILY [facility] Lorazepam 2 mg 07/13/18 18:00 07/13/18 22:09 Ativan PO 2 mg QID [facility] Administration Protocol Metronidazole 500 mg 07/13/18 22:00 07/13/18 22:09 Flagyl PO 07/20/18 22:01 500 mg Q8 [facility] Administration Protocol Multivitamins 1 tab 07/14/18 08:00 Thera Tab PO 0800 [facility] Ondansetron HCl 4 mg 07/13/18 17:19 Zofran Tab PO TID PRN Nausea/Vomiting Pantoprazole Sodium 40 mg 07/14/18 06:00 Protonix Ec Tab PO 0600 [facility] Thiamine HCl 100 mg 07/14/18 08:00 Vitamin B1 Tab PO DAILY [facility] Zaleplon 5 mg 07/13/18 17:18 Sonata PO HS PRN Insomnia Present on Admission - Present on Admission Any Indicators Present on Admission: No - Notes: Notes:: Please refer to ER report and medical reports from medical admission 07/12/18- 07/13/18 for ROS and physical exam findings. Review of Systems - Review of Systems Review of Systems: Please refer to ER report and medical reports from medical admission 07/12/18- 07/13/18 for ROS and physical exam findings. - Constitutional Constitutional: As Per HPI - EENT Eyes: As Per HPI Ears: As Per HPI Nose/Mouth/Throat: As Per HPI - Cardiovascular Cardiovascular: As Per HPI - Respiratory Respiratory: As Per HPI - Gastrointestinal Gastrointestinal: As Per HPI - Reproductive: Male Reproductive:Male: As Per HPI - Musculoskeletal Musculoskeletal: As Per HPI - Integumentary Integumentary: As Per HPI - Neurological Neurological: As Per HPI - Psychiatric Psychiatric: As Per HPI - Endocrine Endocrine: As Per HPI - Hematologic/Lymphatic Hematologic: As Per HPI Past Patient History - Past Psychiatric History Prior Professional Help: See HPI - PSYCHIATRIC Hx Substance Use: Yes - CARDIAC Hx Cardiac Disorders: No Hx Hypertension: Yes - PULMONARY Hx Respiratory Disorders: No - NEUROLOGICAL Hx Neurological Disorder: No - HEENT Hx HEENT Problems: No - RENAL Hx Chronic Kidney Disease: No - ENDOCRINE/METABOLIC Hx Endocrine Disorders: No - HEMATOLOGICAL/ONCOLOGICAL Hx Blood Disorders: No - INTEGUMENTARY Hx Dermatological Problems: No - MUSCULOSKELETAL/RHEUMATOLOGICAL Hx Falls: No - GASTROINTESTINAL Hx Colitis: Yes - GENITOURINARY/GYNECOLOGICAL Hx Genitourinary Disorders: No - SURGICAL HISTORY Hx Surgeries: No - Medical/Surgical History Reviewed & confirmed: by me Meds Allergies/Adverse Reactions: Allergies Allergy/AdvReac Type Severity Reaction Status Date / Time No Known Allergies Allergy Verified 07/13/18 17:01 Mental Status Examination - Personal Presentation Personal Presentation: Looks stated age - Affect Affect: Constricted - Motor Activity Motor Activity: Calm - Reliability in Providing Information Reliability in Providing Information: Fair - Speech Speech: Relevant, Coherent - Mood Mood: Depressed - Formal Thought Process Formal Thought Process: No Impairment (none noted at this time, though patient is preoccupied & guarded) - Obsessions/Compulsions Obsessions: No Compulsions: No - Cognitive Functions Orientation: Person, Place, Situation Sensorium: Alert Attention/Concentration: Easily distracted Estimate of Intelligence: Average Judgement: Intact, as evidence by: Insight regarding need for hospitalization - Risk Risk: Suicidal, Withdrawal, Diminished functioning Psychiatric Physical Exam - Physical Exam Reviewed and confirmed: Emergency Department Physical Exam (Please refer to ER report and medical reports from medical admission 07/12/18-07/13/18 for ROS and physical exam findings.) Results - Vital Signs Recent Vital Signs: Last Vital Signs Temp 98 F 07/13/18 16:10 Pulse 83 07/13/18 20:42 Resp 18 07/13/18 20:42 BP 148/85 07/13/18 16:10 Pulse Ox - Impressions Impression: Please refer to ER report and medical reports from medical admission 07/12/18- 07/13/18 for ROS and physical exam findings. DSM Plan - DSM 5 DSM 5 Diagnosis: Mood Spectrum Disorder r/o Major Depression, Severe Severe Alcohol Use Disorder Alcohol withdrawal Likely contribution of substance-induced mood disorder - Recommended/Plan of Treatment Treatment Recommendations and Plan of Treatment: * group, milieu and supportive tx * Appreciate f/u by Dr. Bernabe on 07/14/18 * Celexa 10 mg po dailly for depression * Ativan 2 mg po QID for alcohol withdrawal, to taper as tolerated. Consider naltrexone if patient is motivated/interested * Sonata 5 mg po HS prn: insomnia * Vitals reviewed and noted below: 07/13/18 16:10 Temperature 98 F Pulse Rate 97 H Respiratory 17 Rate Blood Pressure 148/85 Please refer to ER report and medical reports from medical admission 07/12/18- 07/13/18 for ROS and physical exam findings. * Admission labs: no new floor lab results thus far Projected ELOS: 7 days Prognosis: guarded Discharge Plan and Discharge Criteria: Dual treatment program vs. rehab Initial Psych Certification - Initial Certification I certify that the inpatient psychiatric facility admission was medically necessary for either: Treatment which could reasonbly be expected to improve pt's condition, Diagnostic study I estimate of hospitalization is necessary for proper treatment of the patient: 7 Unit of Time: Days
[2018-07-15] MEDS: Cefpodoxime (Vantin) 200 mg Tab PO SCH ×2 (07:51→18:02)
[2018-07-15] MEDS: Pantoprazole 40 mg EC Tab PO SCH (07:51)
[2018-07-15] MEDS: Multivitamin Therapeutic Tab PO SCH (08:29)
--- NOTE | 2018-07-15 10:51 | PCM.PYCHPN ---
Psychiatric Progress Note - Psychiatric Progress Note Patient seen today, length of contact: 35 min Problems Identified/Issues Discussed: History of Present Illness and Precipitating Events: Patient is a 58 yo male, primarily South African-speaking with history of Mood Spectrum Disorder, Alcohol Use Disorder, likely contribution of Substance- Induced Mood Disorder, no prior psychiatric admissions or SA who was transferred from the medical floor yesterday 07/13/18, for treatment of depression and continued treatment of alcohol withdrawal symptoms. Of note: patient was initially transferred from [facility] for a psychiatric admission however he was medically admitted from 07/12/18-07/13/[address] of the abdomen revealed colitis. Dr. Regalado consulted with him on 07/13/18 and implemented Celexa 10 mg po daily for depression and Sonata qhs for insomnia. He is also being treated for alcohol withdrawals. Patient expressed he was depressed and hopeless. Indicated that he was drinking a liter of vodka daily as a wish but he also had thoughts of jumping in front of traffic or grabbing a [place] police's gun to shoot himself. Staff notes indicate that patient has been in good control and there have been no management issues since his arrival. Staff utilized [employer] translator and interpreter #[id number] to communicate. This provider use [employer] "speak and translate" to help with translation. Patient is depressed and reports that he drinks alcohol to cope with his depression. He doesn't have any hallucinations or suicidal thoughts at this time. He slept well and has been tolerating medications prescribed thus far. His comprehension of my questioning is good and responses are relevant. He doesn't appear to be in any physical distress however his affect is depressed and constricted, congruent to reported mood. PSYCHIATRIC HISTORY Denies prior psychiatric admissions or SA Patient had SI to slit his throat or jump in front of traffic in 2010 Possible admission to [facility], however this appears related to detox SOCIAL HISTORY Born and raised in [place]. . Patient has 4 children. PROGRESS NOTE 07/15/18 This provider use [employer] "speak and translate" to help with translation. Patient is depressed but has been feeling "okay" on the unit. He doesn't have any hallucinations or suicidal thoughts at this time. He slept well and has been tolerating medications prescribed thus far. His comprehension of my questioning is good and responses are relevant. He doesn't appear to be in any physical distress however his affect is depressed and constricted, congruent to reported mood. Perhaps a little more alert today. I reviewed treatment plan regarding his medications, possible side effects and therapeutic latency and he continues to be in agreement. Diagnostic Results: Mood Spectrum Disorder r/o Major Depression, Severe Severe Alcohol Use Disorder Alcohol withdrawal Likely contribution of substance-induced mood disorder Medication Change: Yes (ativan decreased) Medical Record Reviewed: Yes Mental Status Examination - Cognitive Function Orientation: Person, Place, Situation Attention: WNL Concentration: Poor Association: WNL Fund of Knowledge: Poor - Mood Mood: Depressed - Affect Affect: Constricted - Speech Speech: Appropriate - Formal Thought Process Formal Thought Process: No Impairment (none noted at this time, though patient is preoccupied & guarded) - Suicidal Ideation Suicidal Ideation: No - Homicidal Ideation Homicidal Ideation: No Goal/Treatment Plan - Goal/Treatment Plan Progress Toward Problem(s) and Goals/Treatment Plan: * group, milieu and supportive tx * Appreciate f/u by Dr. Bernabe on 07/14/18 * Celexa 10 mg po daily for depression--patient is tolerating well * Ativan 2 mg po QID for alcohol withdrawal, decreased to 2 mg po q8 on 07/15/18 as VSS. Will continue to taper as tolerated. Consider naltrexone if patient is motivated/interested * Sonata 5 mg po HS prn: insomnia * Vitals reviewed and noted below: Selected Entries 07/15/18 07:18 Temperature 98.0 F Pulse Rate 83 Respiratory 20 Rate Blood Pressure 137/92 H Please refer to ER report and medical reports from medical admission 07/12/18- 07/13/18 for ROS and physical exam findings. * Admission labs: no new floor lab results thus far
[2018-07-15 11:31] LABS: ALB/GLOB RATIO 1.5 (1.1-1.8); ALBUMIN 3.7 g/dL (3.0-4.8); ALT/SGPT 107 U/L (7-56); AST/SGOT 109 U/L (17-59); BLOOD UREA NITROGEN 21 mg/dL (7-21); CALCIUM 8.9 mg/dL (8.4-10.5); GFR NON-AFRICAN AMERICAN > 60
[2018-07-16] MEDS: Pantoprazole 40 mg EC Tab PO SCH (06:20)
[2018-07-16] MEDS: Cefpodoxime (Vantin) 200 mg Tab PO SCH ×2 (06:21→18:04)
[2018-07-16] MEDS: Multivitamin Therapeutic Tab PO SCH (08:21)
--- NOTE | 2018-07-16 12:36 | PCM.PYCHPN ---
Psychiatric Progress Note - Psychiatric Progress Note Patient seen today, length of contact: 35 min Problems Identified/Issues Discussed: History of Present Illness and Precipitating Events: Patient is a 58 yo male, primarily East Timorese-speaking with history of Mood Spectrum Disorder, Alcohol Use Disorder, likely contribution of Substance- Induced Mood Disorder, no prior psychiatric admissions or SA who was transferred from the medical floor yesterday 07/13/18, for treatment of depression and continued treatment of alcohol withdrawal symptoms. Of note: patient was initially transferred from [facility] for a psychiatric admission however he was medically admitted from 07/12/18-07/13/[address] of the abdomen revealed colitis. Dr. Regalado consulted with him on 07/13/18 and implemented Celexa 10 mg po daily for depression and Sonata qhs for insomnia. He is also being treated for alcohol withdrawals. Patient expressed he was depressed and hopeless. Indicated that he was drinking a liter of vodka daily as a wish but he also had thoughts of jumping in front of traffic or grabbing a navigating officer's gun to shoot himself. Staff notes indicate that patient has been in good control and there have been no management issues since his arrival. Staff utilized [employer] power reactor operator #[id number] to communicate. This provider use ankush "speak and translate" to help with translation. Patient is depressed and reports that he drinks alcohol to cope with his depression. He doesn't have any hallucinations or suicidal thoughts at this time. He slept well and has been tolerating medications prescribed thus far. His comprehension of my questioning is good and responses are relevant. He doesn't appear to be in any physical distress however his affect is depressed and constricted, congruent to reported mood. PSYCHIATRIC HISTORY Denies prior psychiatric admissions or SA Patient had SI to slit his throat or jump in front of traffic in 2010 [place] [facility] this appears related to detox SOCIAL HISTORY Born [place] raised in [place]. . Patient has 4 children. PROGRESS NOTE 07/16/18 I reviewed recent notes and met with patient during tx team meeting today. He is fairly groomed, cooperative and calm. Thought process is clear and coherent. Patient reports he is feeling better, denies any issues with his medications. He doesn't have any hallucinations or suicidal thoughts at this time. His comprehension of my questioning is good and responses are relevant. He doesn't appear to be in any physical distress however his affect remains depressed and constricted, congruent to reported mood. He is definitely becoming more alert and engaged as treatment progresses. I reviewed treatment plan again during our meeting and he continues to be in agreement. Patient signed treatment plan and denied any new concerns or questions. Diagnostic Results: Mood Spectrum Disorder r/o Major Depression, Severe Severe Alcohol Use Disorder Alcohol withdrawal Likely contribution of substance-induced mood disorder Medication Change: No ( ) Medical Record Reviewed: Yes Mental Status Examination - Cognitive Function Orientation: Person, Place, Situation Attention: WNL Concentration: WNL Association: WNL Fund of Knowledge: Poor - Mood Mood: Depressed - Affect Affect: Constricted - Speech Speech: Appropriate - Formal Thought Process Formal Thought Process: No Impairment (none noted at this time, though patient is preoccupied & guarded) - Suicidal Ideation Suicidal Ideation: No - Homicidal Ideation Homicidal Ideation: No Goal/Treatment Plan - Goal/Treatment Plan Progress Toward Problem(s) and Goals/Treatment Plan: * group, milieu and supportive tx * Appreciate f/u by Dr. Andre/Dr. Bernabe on 07/14/18 * Celexa 10 mg po daily for depression--patient is tolerating well * Ativan 2 mg po QID for alcohol withdrawal, decreased to 2 mg po q8 on 07/15/18 as VSS. Will continue to taper as tolerated however VS are elevated this morning. Consider naltrexone if patient is motivated/interested * Sonata 5 mg po HS prn: insomnia * Vitals reviewed and noted below: 07/15/18 07/15/18 07:18 16:24 Temperature 98.0 F Pulse Rate 83 79 Respiratory 20 Rate Blood Pressure 137/92 H 145/85 Please refer to ER report and medical reports from medical admission 07/12/18- 07/13/18 for ROS and physical exam findings. * Admission labs: new floor lab results noted below: Laboratory Results - last 24 hr 07/15/18 11:16 Sodium 138 Potassium 4.0 Chloride 102 Carbon Dioxide 29 Anion Gap 11 BUN 21 Creatinine 0.9 Est GFR ( Amer) > 60 Est GFR (Non-Af Amer) > 60 Random Glucose 97 Calcium 8.9 Total Bilirubin 0.3 AST 109 H ALT 107 H Alkaline Phosphatase 76 Total Protein 6.3 Albumin 3.7 Globulin 2.6 Albumin/Globulin Ratio 1.5
[2018-07-17] MEDS: Pantoprazole 40 mg EC Tab PO SCH (06:53)
--- NOTE | 2018-07-17 07:15 | CP.PCM.PN ---
Subjective - Date & Time of Evaluation Date of Evaluation: 07/17/18 Time of Evaluation: 07:14 - Subjective Subjective: Patient was seen for elevated blood pressure reading .It was 161/80. He was given norvasc 10 mg PO x 1. BP is 132/83 now. He had little dizziness. Had no other complaints. Denies heaviness in the head, chest pain, sob, weakness, paraesthesia. Medical record was reviewed. This 58 year old white male was admitted HTN Alcohol abuse Psychoaffective disorder. Depression Suicidal ideation. Objective - Vital Signs/Intake and Output Vital Signs (last 24 hours): Temp Pulse Resp BP Pulse Ox 98.5 F 76 20 189/93 H 07/16/18 07:24 07/16/18 16:00 07/16/18 07:24 07/16/18 20:53 - Medications Medications: Current Medications Amlodipine Besylate (Norvasc) 5 mg PO DAILY [facility] Citalopram Hydrobromide (Celexa) 10 mg PO DAILY [facility] Last Admin: 07/16/18 08:21 Dose: 10 mg Cyanocobalamin (Vitamin B12 1000 Mcg Tab) 1,000 mcg PO DAILY [facility] Last Admin: 07/16/18 08:22 Dose: 1,000 mcg Folic Acid (Folic Acid) 1 mg PO DAILY [facility] Last Admin: 07/16/18 08:21 Dose: 1 mg Lorazepam (Ativan) 2 mg PO Q8 [facility]; Protocol Last Admin: 07/17/18 06:53 Dose: 2 mg Multivitamins (Thera Tab) 1 tab PO 0800 [facility] Last Admin: 07/16/18 08:21 Dose: 1 tab Ondansetron HCl (Zofran Tab) 4 mg PO TID PRN PRN Reason: Nausea/Vomiting Pantoprazole Sodium (Protonix Ec Tab) 40 mg PO 0600 [facility] Last Admin: 07/17/18 06:53 Dose: 40 mg Thiamine HCl (Vitamin B1 Tab) 100 mg PO DAILY [facility] Last Admin: 07/16/18 08:21 Dose: 100 mg Zaleplon (Sonata) 5 mg PO HS PRN PRN Reason: Insomnia - Labs Labs: 07/15/18 11:16 - Constitutional Appears: Well, No Acute Distress - Head Exam Head Exam: ATRAUMATIC, NORMAL INSPECTION, NORMOCEPHALIC - Eye Exam Eye Exam: Normal appearance - ENT Exam ENT Exam: Normal External Ear Exam - Neck Exam Neck Exam: Normal Inspection - Respiratory Exam Respiratory Exam: NORMAL BREATHING PATTERN - Cardiovascular Exam Cardiovascular Exam: absent: JVD - GI/Abdominal Exam GI & Abdominal Exam: absent: Distended - Rectal Exam Rectal Exam: Deferred - Exam Additional comments: Deferred. - Extremities Exam Extremities Exam: Normal Inspection - Back Exam Back Exam: NORMAL INSPECTION - Neurological Exam Neurological Exam: Alert, Awake, Oriented x3 - Psychiatric Exam Psychiatric exam: Normal Affect, Normal Mood - Skin Skin Exam: Normal Color Assessment and Plan - Assessment and Plan (Free Text) Assessment: Elevated blood pressure reading. HTN. Depression. Suicidal ideation. Alcohl abuse Psychoaffective disorder. Plan: Norvasc 10 mg PO stat. Order scheduled Norvasc. Continue present management.
--- NOTE | 2018-07-17 08:54 | PCM.PYCHPN ---
Psychiatric Progress Note - Psychiatric Progress Note Patient seen today, length of contact: 35 min Problems Identified/Issues Discussed: History of Present Illness and Precipitating Events: Patient is a 58 yo male, primarily Cambodian-speaking with history of Mood Spectrum Disorder, Alcohol Use Disorder, likely contribution of Substance- Induced Mood Disorder, no prior psychiatric admissions or SA who was transferred from the medical floor yesterday 07/13/18, for treatment of depression and continued treatment of alcohol withdrawal symptoms. Of note: patient was initially transferred from [facility] for a psychiatric admission however he was medically admitted from 07/12/18-07/13/[address] of the abdomen revealed colitis. Dr. Regalado consulted with him on 07/13/18 and implemented Celexa 10 mg po daily for depression and Sonata qhs for insomnia. He is also being treated for alcohol withdrawals. Patient expressed he was depressed and hopeless. Indicated that he was drinking a liter of vodka daily as a wish but he also had thoughts of jumping in front of traffic or grabbing a military police officer's gun to shoot himself. Staff notes indicate that patient has been in good control and there have been no management issues since his arrival. Staff utilized [employer] bone grinder #[id number] to communicate. This provider use [employer] "speak and translate" to help with translation. Patient is depressed and reports that he drinks alcohol to cope with his depression. He doesn't have any hallucinations or suicidal thoughts at this time. He slept well and has been tolerating medications prescribed thus far. His comprehension of my questioning is good and responses are relevant. He doesn't appear to be in any physical distress however his affect is depressed and constricted, congruent to reported mood. PSYCHIATRIC HISTORY Denies prior psychiatric admissions or SA Patient had SI to slit his throat or jump in front of traffic in 2010 Possible admission to [facility] [place], however this appears related to detox SOCIAL HISTORY Born and raised in [place]. . Patient has 4 children. PROGRESS NOTE 07/17/18 I reviewed recent notes and met with patient in the gray. Amrita helped me with Cambodian translation. Patient appears a little more unkempt today but still responsive and superficially friendly. He is cooperative and calm. Patient reports continued depression with low mood, energy and restless sleep. He denies any incident of hallucinations and his thought process is clear and coherent. Affect remains depressed and constricted, congruent to reported mood. His comprehension of my questioning is good and responses are relevant. Patient denies any withdrawal symtpoms at this time and he doesn't appear to be in any physical distress .however hisHe is definitely becoming more alert and engaged as treatment progresses though, as noted, remains depressed. I reviewed treatment plan again during our meeting on 07/16/18 and he continues to be in agreement. Patient signed treatment plan and denied any new concerns or questions. 07/17/18 23:08 - Nursing Note by Jourdan Orourke [facility] Num: [id number] : 1960 Patient Age: 58 Received patient in the social area dressed in the street clothes fair hygiene. Mood "OK" affect pleasant. Denied suicidal or homicidal ideation. Denied auditory or visual hallucinations. Encouraged to verbalize the feelings or concerns. Patient speaks Cambodian but able to answer in short answers in Omani and understands simple Omani.Stayed in the social area all evening interacting with Cambodian peaking peers.No management issues noted. Compliant with the meds. No complain of pain or discomfort voiced. No side effects to the meds noted. Requested for sleeping medication same given as per the orders. Q15 minute observation is in progress.Will continue to monitor and provide support as needed. Initialized on 07/17/18 23:08 - END OF NOTE 07/17/18 18:15 - Psych B.I.R.P - [facility]: [id number] : 1960 Patient Age: 58 B: out of bed for am routine. mood is calm and affect is congruent with mood. no suicidal idetaion verbalized. denies a/v hallucination. patient keep to himself most of the time. I: will continue to monitor his behavior. emotionnal support given R: patient is remain isolative. P: continue plan of care . safety check done every 15 minutes. Initialized on 07/17/18 18:15 - END OF NOTE 07/17/18 00:52 - Nursing [facility]: [id number] : 1960 Patient Age: 58 Addendum entered and electronically signed by Trisha Cuevas RN 07/17/18 06:12: Pt. observed awake complaint of not able to fall asleep. Dr. Preciado made aware and Sonata 10mg given. afterwards pt fall asleep. Original Note: Addendum entered and electronically signed by Trisha Cuevas RN 07/17/18 01:03: pt. observed awake prn Sonata given. Original Note: Patient received in social area AAOX3. during report it was endorsed pt has high BP at 7.45 pm BP was taken and it was 189/93, p-78, pt. complaint of light headache. oral and maxillofacial surgery resident Maris Hernandez was called he came to see the pt. and Norvasc 10mg stat given. After 1hr BP was retaken and it was 161/80 and p-70 resident was informed. pt observed in milieu, good appetite and steady gait. Denies any pain or discomfort. Denies any hallucination and S/H Ideation. Encourage to relax and express his thoughts and feelings. will continue to monitor, Q15 min safety round maintained. Initialized on 07/17/18 00:52 - END OF NOTE Diagnostic Results: Mood Spectrum Disorder r/o Major Depression, Severe Severe Alcohol Use Disorder Alcohol withdrawal Likely contribution of substance-induced mood disorder Medication Change: Yes (ativan decreased) Medical Record Reviewed: Yes Mental Status Examination - Cognitive Function Orientation: Person, Place, Situation Attention: WNL Concentration: WNL Association: WNL Fund of Knowledge: Poor - Mood Mood: Depressed - Affect Affect: Constricted - Speech Speech: Appropriate - Formal Thought Process Formal Thought Process: No Impairment (none noted at this time, though patient is preoccupied & guarded) - Suicidal Ideation Suicidal Ideation: No - Homicidal Ideation Homicidal Ideation: No Goal/Treatment Plan - Goal/Treatment Plan Progress Toward Problem(s) and Goals/Treatment Plan: * group, milieu and supportive tx * Appreciate f/u by Dr. Andre/Dr. Bernabe on 07/14/18 * Appreciate f/u by Dr. Almaraz on 07/17/18, addition of standing antihypertensive Norvasc 5 mg po daily 07/17/18 * Celexa 10 mg po daily for depression--patient is tolerating well. Increased to 20 mg po daily on 07/17/18 for continued depression * Ativan 2 mg po QID for alcohol withdrawal, decreased to 2 mg po q8 on 07/15/18 and then to 1 mg po q8 as VSS on 07/18/18 * Consider naltrexone if patient is motivated/interested * Sonata 5 mg increased to 10 mg po HS prn: insomnia on 07/17/18 * Vitals reviewed and noted below: Selected Entries 07/16/18 07/16/18 07/16/18 07:24 16:00 20:53 Temperature 98.5 F Pulse Rate 71 76 Respiratory 20 Rate Blood Pressure 144/80 158/85 H 189/93 H Please refer to ER report and medical reports from medical admission 07/12/18- 07/13/18 for ROS and physical exam findings. * Admission labs: new floor lab results noted below: Laboratory Results - last 24 hr 07/15/18 11:16 Sodium 138 Potassium 4.0 Chloride 102 Carbon Dioxide 29 Anion Gap 11 BUN 21 Creatinine 0.9 Est GFR ( Amer) > 60 Est GFR (Non-Af Amer) > 60 Random Glucose 97 Calcium 8.9 Total Bilirubin 0.3 AST 109 H ALT 107 H Alkaline Phosphatase 76 Total Protein 6.3 Albumin 3.7 Globulin 2.6 Albumin/Globulin Ratio 1.5
[2018-07-17] MEDS: Multivitamin Therapeutic Tab PO SCH (09:26)
[2018-07-18] MEDS: Pantoprazole 40 mg EC Tab PO SCH (06:34)
[2018-07-18] MEDS: Multivitamin Therapeutic Tab PO SCH (09:31)
--- NOTE | 2018-07-18 11:22 | PCM.PYCHPN ---
Psychiatric Progress Note - Psychiatric Progress Note Patient seen today, length of contact: 35 min Problems Identified/Issues Discussed: History of Present Illness and Precipitating Events: Patient is a 58 yo male, primarily Slovak-speaking with history of Mood Spectrum Disorder, Alcohol Use Disorder, likely contribution of Substance- Induced Mood Disorder, no prior psychiatric admissions or SA who was transferred from the medical floor yesterday 07/13/18, for treatment of depression and continued treatment of alcohol withdrawal symptoms. Of note: patient was initially transferred from [facility] for a psychiatric admission however he was medically admitted from 07/12/18-07/13/[address] of the abdomen revealed colitis. Dr. Regalado consulted with him on 07/13/18 and implemented Celexa 10 mg po daily for depression and Sonata qhs for insomnia. He is also being treated for alcohol withdrawals. Patient expressed he was depressed and hopeless. Indicated that he was drinking a liter of vodka daily as a wish but he also had thoughts of jumping in front of traffic or grabbing a residential care officer's gun to shoot himself. Staff notes indicate that patient has been in good control and there have been no management issues since his arrival. Staff utilized [employer] #[id number] to communicate. This provider use [employer] "speak and translate" to help with translation. Patient is depressed and reports that he drinks alcohol to cope with his depression. He doesn't have any hallucinations or suicidal thoughts at this time. He slept well and has been tolerating medications prescribed thus far. His comprehension of my questioning is good and responses are relevant. He doesn't appear to be in any physical distress however his affect is depressed and constricted, congruent to reported mood. PSYCHIATRIC HISTORY Denies prior psychiatric admissions or SA Patient had SI to slit his throat or jump in front of traffic in 2010 Possible admission to [facility], however this appears related to detox SOCIAL HISTORY Born and raised in [place]. . Patient has 4 children. PROGRESS NOTE 07/18/18 I reviewed recent notes. Patient appears a little more unkempt but still responsive and superficially friendly. He is cooperative and calm. Patient reports continued depression with low mood, anxiety during the day and restless sleep. He denies any incident of hallucinations and his thought process is clear and coherent. Affect remains depressed and constricted, congruent to reported mood. His comprehension of questioning is good and responses are relevant. Patient d enies any withdrawal symptoms at this time and he doesn't appear to be in any acute physical distress. He still mostly keeps to himself on the unit but seems to be engaging more with other Slovak-speaking patients. I reviewed treatment plan again during our meeting on 07/16/18 and he continues to be in agreement. Patient signed treatment plan and denied any new concerns or questions. Diagnostic Results: Mood Spectrum Disorder r/o Major Depression, Severe Severe Alcohol Use Disorder Alcohol withdrawal Likely contribution of substance-induced mood disorder Medication Change: Yes (ativan decreased) Medical Record Reviewed: Yes Mental Status Examination - Cognitive Function Orientation: Person, Place, Situation Attention: Poor Concentration: WNL Association: WNL Fund of Knowledge: Poor - Mood Mood: Depressed - Affect Affect: Constricted - Speech Speech: Appropriate - Formal Thought Process Formal Thought Process: No Impairment (none noted at this time, though patient is preoccupied & guarded) - Suicidal Ideation Suicidal Ideation: No - Homicidal Ideation Homicidal Ideation: No Goal/Treatment Plan - Goal/Treatment Plan Progress Toward Problem(s) and Goals/Treatment Plan: * group, milieu and supportive tx * Appreciate f/u by Dr. Andre/Dr. Bernabe on 07/14/18 * Appreciate f/u by Dr. Almaraz on 07/17/18, addition of standing antihypertensive Norvasc 5 mg po daily 07/17/18. Will monitor VS closely, they seem more stable this mornin07/17/18 07/17/18 07/17/18 07:00 09:28 16:00 Temperature 98.1 F Pulse Rate 88 88 80 Respiratory 18 Rate Blood Pressure 132/83 132/83 122/68 07/18/18 07:19 Temperature 97.3 F L Pulse Rate 71 Respiratory 20 Rate Blood Pressure 136/83 07/16/18 07/16/18 07/16/18 07:24 16:00 20:53 Temperature 98.5 F Pulse Rate 71 76 Respiratory 20 Rate Blood Pressure 144/80 158/85 H 189/93 H * Celexa 10 mg po daily for depression--patient is tolerating well. Increased to 20 mg po daily on 07/17/18 for continued depression * Ativan 2 mg po QID for alcohol withdrawal, decreased to 2 mg po q8 on 07/15/18 and then to 1 mg po q8 as VSS on 07/18/18 * Consider naltrexone if patient is motivated/interested * Sonata 5 mg increased to 20 mg po HS on 07/18/18 for continued reports of restless sleep * Vitals reviewed and noted below: Please refer to ER report and medical reports from medical admission 07/12/18- 07/13/18 for ROS and physical exam findings. * Admission labs: new floor lab results noted below: Laboratory Results - last 24 hr 07/15/18 11:16 Sodium 138 Potassium 4.0 Chloride 102 Carbon Dioxide 29 Anion Gap 11 BUN 21 Creatinine 0.9 Est GFR ( Amer) > 60 Est GFR (Non-Af Amer) > 60 Random Glucose 97 Calcium 8.9 Total Bilirubin 0.3 AST 109 H ALT 107 H Alkaline Phosphatase 76 Total Protein 6.3 Albumin 3.7 Globulin 2.6 Albumin/Globulin Ratio 1.5
[2018-07-19] MEDS: Pantoprazole 40 mg EC Tab PO SCH (06:15)
[2018-07-19] MEDS: Multivitamin Therapeutic Tab PO SCH (08:27)
--- NOTE | 2018-07-19 09:21 | PCM.PYCHPN ---
Psychiatric Progress Note - Psychiatric Progress Note Patient seen today, length of contact: 35 min Problems Identified/Issues Discussed: History of Present Illness and Precipitating Events: Patient is a 58 yo male, primarily Irish-speaking with history of Mood Spectrum Disorder, Alcohol Use Disorder, likely contribution of Substance- Induced Mood Disorder, no prior psychiatric admissions or SA who was transferred from the medical floor yesterday 07/13/18, for treatment of depression and continued treatment of alcohol withdrawal symptoms. Of note: patient was initially transferred from [facility] for a psychiatric admission however he was medically admitted from 07/12/18-07/13/[address] of the abdomen revealed colitis. Dr. Regalado consulted with him on 07/13/18 and implemented Celexa 10 mg po daily for depression and Sonata qhs for insomnia. He is also being treated for alcohol withdrawals. Patient expressed he was depressed and hopeless. Indicated that he was drinking a liter of vodka daily as a wish but he also had thoughts of jumping in front of traffic or grabbing a police aide's gun to shoot himself. Staff notes indicate that patient has been in good control and there have been no management issues since his arrival. Staff utilized [employer] selector packer #[id number] to communicate. This provider use ankush "speak and translate" to help with translation. Patient is depressed and reports that he drinks alcohol to cope with his depression. He doesn't have any hallucinations or suicidal thoughts at this time. He slept well and has been tolerating medications prescribed thus far. His comprehension of my questioning is good and responses are relevant. He doesn't appear to be in any physical distress however his affect is depressed and constricted, congruent to reported mood. PSYCHIATRIC HISTORY Denies prior psychiatric admissions or SA Patient had SI to slit his throat or jump in front of traffic in 2010 Possible admission to [facility], however this appears related to detox SOCIAL HISTORY Born and raised in [place]. . Patient has 4 children. PROGRESS NOTE 07/19/18 I reviewed recent notes. Patient appears a little better groomed and brighter today. He clearly recognizes me and acts friendly when I greet him. I utilize speak and translate ankush to help with botswanan translation. Patient is cooperative, calm and patient during this interaction. Easily comprehends use of the ankush and his responses remain relevant and consistent. Patient reports continued low mood as well as anxiety during the day. Sleep remains restless despite increase in sonata. He denies any incident of hallucinations however reports having such vivid dreams that he feels his mind is playing tricks on him. Patient's thought process is clear and coherent. This provider and staff have not observed him responding to internal stimuli. Patient denies any withdrawal symptoms at this time and he doesn't appear to be in any acute physical distress. He still mostly keeps to himself on the unit but has been more visible and engaging more with other Irish-speaking patients. NOTE: I reviewed treatment plan again during our meeting on 07/16/18 and he continues to be in agreement. Patient signed treatment plan and denied any new concerns or questions. Diagnostic Results: Mood Spectrum Disorder r/o Major Depression, Severe Severe Alcohol Use Disorder Alcohol withdrawal Likely contribution of substance-induced mood disorder Medication Change: Yes (ativan decreased, seroquel started) Medical Record Reviewed: Yes Mental Status Examination - Cognitive Function Orientation: Person, Place, Situation Attention: Poor Concentration: WNL Association: WNL Fund of Knowledge: Poor - Mood Mood: Depressed - Affect Affect: Constricted - Speech Speech: Appropriate - Formal Thought Process Formal Thought Process: No Impairment (none noted at this time, though patient is preoccupied & guarded) - Suicidal Ideation Suicidal Ideation: No - Homicidal Ideation Homicidal Ideation: No Goal/Treatment Plan - Goal/Treatment Plan Progress Toward Problem(s) and Goals/Treatment Plan: * group, milieu and supportive tx * Appreciate f/u by Dr. Andre/Dr. Bernabe on 07/14/18 * Appreciate f/u by Dr. Almaraz on 07/17/18, addition of standing antihypertensive Norvasc 5 mg po daily 07/17/18. Will monitor VS closely, recent set noted below: 07/18/18 07/18/18 07/18/18 07:19 16:00 19:38 Temperature 97.3 F L Pulse Rate 71 77 80 Respiratory 20 Rate Blood Pressure 136/83 150/77 156/80 H 07/19/18 07/19/18 07:37 08:25 Temperature 97.2 F L Pulse Rate 76 76 Respiratory 20 Rate Blood Pressure 157/88 H 157/88 H * Celexa 10 mg po daily for depression--patient is tolerating well. Increased to 20 mg po daily on 07/17/18 for continued depression * Ativan 2 mg po QID for alcohol withdrawal, decreased to 2 mg po q8 on 07/15/18 and then to 1 mg po q8 as VSS on 07/18/18. Further decreased to 1 mg amhs on 07/19/18 * Consider naltrexone if patient is motivated/interested * Russel d/c'ed on 07/19/18 in favor of seroquel 25 mg po HS for continued reports of restless sleep Please refer to ER report and medical reports from medical admission 07/12/18- 07/13/18 for ROS and physical exam findings. * Admission labs: new floor lab results noted below: Laboratory Results - last 24 hr 07/15/18 11:16 Sodium 138 Potassium 4.0 Chloride 102 Carbon Dioxide 29 Anion Gap 11 BUN 21 Creatinine 0.9 Est GFR ( Amer) > 60 Est GFR (Non-Af Amer) > 60 Random Glucose 97 Calcium 8.9 Total Bilirubin 0.3 AST 109 H ALT 107 H Alkaline Phosphatase 76 Total Protein 6.3 Albumin 3.7 Globulin 2.6 Albumin/Globulin Ratio 1.5
[2018-07-20] MEDS: Pantoprazole 40 mg EC Tab PO SCH (06:34)
[2018-07-20] MEDS: Multivitamin Therapeutic Tab PO SCH (09:32)
--- NOTE | 2018-07-20 14:31 | PCM.PYCHPN ---
Psychiatric Progress Note - Psychiatric Progress Note Patient seen today, length of contact: 35 min Problems Identified/Issues Discussed: History of Present Illness and Precipitating Events: Patient is a 58 yo male, primarily Tristanian-speaking with history of Mood Spectrum Disorder, Alcohol Use Disorder, likely contribution of Substance- Induced Mood Disorder, no prior psychiatric admissions or SA who was transferred from the medical floor yesterday 07/13/18, for treatment of depression and continued treatment of alcohol withdrawal symptoms. Of note: patient was initially transferred from [facility] for a psychiatric admission however he was medically admitted from 07/12/18-07/13/[address] of the abdomen revealed colitis. Dr. Regalado consulted with him on 07/13/18 and implemented Celexa 10 mg po daily for depression and Sonata qhs for insomnia. He is also being treated for alcohol withdrawals. Patient expressed he was depressed and hopeless. Indicated that he was drinking a liter of vodka daily as a wish but he also had thoughts of jumping in front of traffic or grabbing a police captain senior's gun to shoot himself. Staff notes indicate that patient has been in good control and there have been no management issues since his arrival. Staff utilized [employer] assistant superintendent for curriculum #[id number] to communicate. This provider use ankush "speak and translate" to help with translation. Patient is depressed and reports that he drinks alcohol to cope with his depression. He doesn't have any hallucinations or suicidal thoughts at this time. He slept well and has been tolerating medications prescribed thus far. His comprehension of my questioning is good and responses are relevant. He doesn't appear to be in any physical distress however his affect is depressed and constricted, congruent to reported mood. PSYCHIATRIC HISTORY Denies prior psychiatric admissions or SA Patient had SI to slit his throat or jump in front of traffic in 2010 Possible admission to [facility], however this appears related to detox SOCIAL HISTORY Born and raised in [place]. . Patient has 4 children. PROGRESS NOTE 07/20/18 I reviewed recent notes. Patient appears a little better groomed and brighter today. He clearly recognizes me and acts friendly when I greet him. I utilize speak and translate ankush to help with vincentian translation again. Patient is cooperative, calm and patient during this interaction. Easily comprehends use of the ankush and his responses remain relevant and consistent. Patient reports that his mood is a little better though still "up and down, depressed". He has no major complaints or concerns. He denies any incident of hallucinations and this provider and staff have not observed him responding to internal stimuli. Patient denies any withdrawal symptoms at this time and he doesn't appear to be in any acute physical distress. He still mostly keeps to himself on the unit but has been more visible and engaging more with other Tristanian-speaking patients. Patient tolerated initiation of seroquel last night for sleep, felt it helped a little and is agreeable to further increase. NOTE: I reviewed treatment plan again during our meeting on 07/16/18 and he co tanikainues to be in agreement. Patient signed treatment plan and denied any new concerns or questions. Diagnostic Results: Mood Spectrum Disorder r/o Major Depression, Severe Severe Alcohol Use Disorder Alcohol withdrawal Likely contribution of substance-induced mood disorder Medication Change: Yes (seroquel increased) Medical Record Reviewed: Yes Mental Status Examination - Cognitive Function Orientation: Person, Place, Situation Attention: WNL Concentration: WNL Association: WNL Fund of Knowledge: Poor - Mood Mood: Depressed (better) - Affect Affect: Constricted - Speech Speech: Appropriate - Formal Thought Process Formal Thought Process: No Impairment (none noted at this time, though patient is preoccupied & guarded) - Suicidal Ideation Suicidal Ideation: No - Homicidal Ideation Homicidal Ideation: No Goal/Treatment Plan - Goal/Treatment Plan Progress Toward Problem(s) and Goals/Treatment Plan: * group, milieu and supportive tx * Appreciate f/u by Dr. Andre/Dr. Bernabe on 07/14/18 * Appreciate f/u by Dr. Almaraz on 07/17/18, addition of standing antihypertensive Norvasc 5 mg po daily 07/17/18. Will monitor VS closely, recent set noted below: 07/19/18 07/20/18 16:00 07:17 Temperature 97.9 F Pulse Rate 84 77 Respiratory 20 Rate Blood Pressure 141/78 122/81 * Celexa 10 mg po daily for depression--patient is tolerating well. Increased to 20 mg po daily on 07/17/18 for continued depression * Ativan 2 mg po QID for alcohol withdrawal, decreased to 2 mg po q8 on 07/15/18 and then to 1 mg po q8 as VSS on 07/18/18. Further decreased to 1 mg amhs on 07/19/18. Plan to c/w taper over the weekend and d/c by Monday. * Consider naltrexone if patient is motivated/interested * Russel d/c'ed on 07/19/18 in favor of seroquel 25 mg po HS for continued reports of restless sleep. Seroquel 25 mg po HS was increased to 50 mg po HS for restless sleep Please refer to ER report and medical reports from medical admission 07/12/18- 07/13/18 for ROS and physical exam findings. * Admission labs: new floor lab results noted below: Laboratory Results - last 24 hr 07/15/18 11:16 Sodium 138 Potassium 4.0 Chloride 102 Carbon Dioxide 29 Anion Gap 11 BUN 21 Creatinine 0.9 Est GFR ( Amer) > 60 Est GFR (Non-Af Amer) > 60 Random Glucose 97 Calcium 8.9 Total Bilirubin 0.3 AST 109 H ALT 107 H Alkaline Phosphatase 76 Total Protein 6.3 Albumin 3.7 Globulin 2.6 Albumin/Globulin Ratio 1.5
[2018-07-21] MEDS: Pantoprazole 40 mg EC Tab PO SCH (06:53)
--- NOTE | 2018-07-21 09:07 | PCM.PYCHPN ---
Psychiatric Progress Note - Psychiatric Progress Note Patient seen today, length of contact: 35 min Problems Identified/Issues Discussed: History of Present Illness and Precipitating Events: Patient is a 58 yo male, primarily Irish-speaking with history of Mood Spectrum Disorder, Alcohol Use Disorder, likely contribution of Substance- Induced Mood Disorder, no prior psychiatric admissions or SA who was transferred from the medical floor yesterday 07/13/18, for treatment of depression and continued treatment of alcohol withdrawal symptoms. Of note: patient was initially transferred from [facility] for a psychiatric admission however he was medically admitted from 07/12/18-07/13/[address] of the abdomen revealed colitis. Dr. Regalado consulted with him on 07/13/18 and implemented Celexa 10 mg po daily for depression and Sonata qhs for insomnia. He is also being treated for alcohol withdrawals. Patient expressed he was depressed and hopeless. Indicated that he was drinking a liter of vodka daily as a wish but he also had thoughts of jumping in front of traffic or grabbing a state [address] police officer's gun to shoot himself. Staff notes indicate that patient has been in good control and there have been no management issues since his arrival. Staff utilized [employer] translator/interpreter #[id number] to communicate. This provider use ankush "speak and translate" to help with translation. Patient is depressed and reports that he drinks alcohol to cope with his depression. He doesn't have any hallucinations or suicidal thoughts at this time. He slept well and has been tolerating medications prescribed thus far. His comprehension of my questioning is good and responses are relevant. He doesn't appear to be in any physical distress however his affect is depressed and constricted, congruent to reported mood. PSYCHIATRIC HISTORY Denies prior psychiatric admissions or SA Patient had SI to slit his throat or jump in front of traffic in 2010 Possible admission to [facility], however this appears related to detox SOCIAL HISTORY Born and raised in [place]. . Patient has 4 children. PROGRESS NOTE 07/21/18 I reviewed recent notes. Patient appears a little better groomed and brighter around the unit. He clearly recognizes me and acts friendly when I greet him. I utilize speak and translate ankush to help with turkish translation again. Patient is cooperative, calm and patient during this interaction. Easily comprehends use of the ankush and his responses remain relevant and consistent. Patient reports that his mood is a little better though still "up and down, depressed". He has no major complaints or concerns. He denies any incident of hallucinations and this provider and staff have not observed him responding to internal stimuli. Patient denies any withdrawal symptoms at this time and he doesn't appear to be in any acute physical distress. He still mostly keeps to himself on the unit but has been more visible and engaging more with other Irish-speaking patients. Patient tolerated increase of seroquel last night for sleep, felt it helped but reports restlessness due to nightmares. NOTE: I reviewed treatment plan again during our meeting on 07/16/18 and he continues to be in agreement. Patient signed treatment plan and denied any new concerns or questions. Diagnostic Results: Mood Spectrum Disorder r/o Major Depression, Severe Severe Alcohol Use Disorder Alcohol withdrawal Likely contribution of substance-induced mood disorder Medication Change: Yes (ativan decreased) Medical Record Reviewed: Yes Mental Status Examination - Cognitive Function Orientation: Person, Place, Situation Attention: WNL Concentration: WNL Association: WNL Fund of Knowledge: Poor - Mood Mood: Depressed (better) - Affect Affect: Constricted - Speech Speech: Appropriate - Formal Thought Process Formal Thought Process: No Impairment (none noted at this time, though patient is preoccupied & guarded) - Suicidal Ideation Suicidal Ideation: No - Homicidal Ideation Homicidal Ideation: No Goal/Treatment Plan - Goal/Treatment Plan Progress Toward Problem(s) and Goals/Treatment Plan: * group, milieu and supportive tx * Appreciate f/u by Dr. Andre/Dr. Bernabe on 07/14/18 * Appreciate f/u by Dr. Almaraz on 07/17/18, addition of standing antihypertensive Norvasc 5 mg po daily 07/17/18. Will monitor VS closely, recent set noted below (VSS): Selected Entries 07/20/18 07/20/18 07:17 16:26 Temperature 97.9 F Pulse Rate 77 87 Respiratory 20 Rate Blood Pressure 122/81 131/71 * Celexa 10 mg po daily for depression--patient is tolerating well. Increased to 20 mg po daily on 07/17/18 for continued depression * Ativan 2 mg po QID for alcohol withdrawal, decreased to 2 mg po q8 on 07/15/18 and then to 1 mg po q8 as VSS on 07/18/18. Further decreased to 1 mg amhs on 07/19/18. Plan to c/w taper over the weekend--> decreased to 1 mg HS on monday07/21/18. Plan to d/c by Monday. * Consider naltrexone if patient is motivated/interested * Russel d/c'ed on 07/19/18 in favor of seroquel 25 mg po HS for continued reports of restless sleep. Seroquel 25 mg po HS was increased to 50 mg po HS for restless sleep on 07/20/18 Please refer to ER report and medical reports from medical admission 07/12/18- 07/13/18 for ROS and physical exam findings. * Admission labs: new floor lab results noted below: Laboratory Results - last 24 hr 07/15/18 11:16 Sodium 138 Potassium 4.0 Chloride 102 Carbon Dioxide 29 Anion Gap 11 BUN 21 Creatinine 0.9 Est GFR ( Amer) > 60 Est GFR (Non-Af Amer) > 60 Random Glucose 97 Calcium 8.9 Total Bilirubin 0.3 AST 109 H ALT 107 H Alkaline Phosphatase 76 Total Protein 6.3 Albumin 3.7 Globulin 2.6 Albumin/Globulin Ratio 1.5
[2018-07-21] MEDS: Multivitamin Therapeutic Tab PO SCH (09:08)
[2018-07-22] MEDS: Pantoprazole 40 mg EC Tab PO SCH (07:03)
[2018-07-22] MEDS: Multivitamin Therapeutic Tab PO SCH (08:05)
--- NOTE | 2018-07-22 08:52 | PCM.PYCHPN ---
Psychiatric Progress Note - Psychiatric Progress Note Patient seen today, length of contact: 35 min Problems Identified/Issues Discussed: History of Present Illness and Precipitating Events: Patient is a 58 yo male, primarily Maldivian-speaking with history of Mood Spectrum Disorder, Alcohol Use Disorder, likely contribution of Substance- Induced Mood Disorder, no prior psychiatric admissions or SA who was transferred from the medical floor yesterday 07/13/18, for treatment of depression and continued treatment of alcohol withdrawal symptoms. Of note: patient was initially transferred from [facility] for a psychiatric admission however he was medically admitted from 07/12/18-07/13/[address] of the abdomen revealed colitis. Dr. Regalado consulted with him on 07/13/18 and implemented Celexa 10 mg po daily for depression and Sonata qhs for insomnia. He is also being treated for alcohol withdrawals. Patient expressed he was depressed and hopeless. Indicated that he was drinking a liter of vodka daily as a wish but he also had thoughts of jumping in front of traffic or grabbing a police matron's gun to shoot himself. Staff notes indicate that patient has been in good control and there have been no management issues since his arrival. Staff utilized [employer] overhead crane truck loader #[id number] to communicate. This provider use ankush "speak and translate" to help with translation. Patient is depressed and reports that he drinks alcohol to cope with his depression. He doesn't have any hallucinations or suicidal thoughts at this time. He slept well and has been tolerating medications prescribed thus far. His comprehension of my questioning is good and responses are relevant. He doesn't appear to be in any physical distress however his affect is depressed and constricted, congruent to reported mood. PSYCHIATRIC HISTORY Denies prior psychiatric admissions or SA Patient had SI to slit his throat or jump in front of traffic in 2010 Possible admission to [facility], however this appears related to detox SOCIAL HISTORY Born and raised in [place]. . Patient has 4 children. PROGRESS NOTE 07/22/18 I reviewed recent notes. Patient appears a little better groomed and brighter around the unit. He clearly recognizes me and acts friendly when I greet him. I utilize speak and translate ankush to help with slovenian translation again. Patient is cooperative, calm and patient during this interaction. Easily comprehends use of the ankush and his responses remain relevant and consistent. Patient reports he is sleeping better and denies s/e from Seroquel. Patient reports that his mood is getting better, anxiety is generally under control. Patient doesn't appear anxious but affect is still constricted. He denies any incident of hallucinations and this provider and staff have not observed him responding to internal stimuli. He has no major complaints or concerns except for his disposition, patient is currently homeless. Patient denies any withdrawal symptoms at this time and he doesn't appear to be in any acute physical distress. He still mostly keeps to himself on the unit but has been more visible and engaging more with other Maldivian-speaking patients. Diagnostic Results: Mood Spectrum Disorder r/o Major Depression, Severe Severe Alcohol Use Disorder Alcohol withdrawal Likely contribution of substance-induced mood disorder Medication Change: Yes (ativan decreased) Medical Record Reviewed: Yes Mental Status Examination - Cognitive Function Orientation: Person, Place, Situation Attention: WNL Concentration: WNL Association: WNL Fund of Knowledge: Poor - Mood Mood: Depressed (better) - Affect Affect: Constricted - Speech Speech: Appropriate - Formal Thought Process Formal Thought Process: No Impairment (none noted at this time, though patient is preoccupied & guarded) - Suicidal Ideation Suicidal Ideation: No - Homicidal Ideation Homicidal Ideation: No Goal/Treatment Plan - Goal/Treatment Plan Progress Toward Problem(s) and Goals/Treatment Plan: * group, milieu and supportive tx * Appreciate f/u by Dr. Andre/Dr. Bernabe on 07/14/18 * Appreciate f/u by Dr. Almaraz on 07/17/18, addition of standing antihypertensive Norvasc 5 mg po daily 07/17/18. Will monitor VS closely, recent set noted below (VSS): Selected Entries 07/21/18 07/21/18 07/21/18 07:21 16:00 18:46 Temperature 98.0 F Pulse Rate 75 71 76 Respiratory 20 Rate Blood Pressure 114/76 138/80 163/87 H * Celexa 10 mg po daily for depression--patient is tolerating well. Increased to 20 mg po daily on 07/17/18 for continued depression * Ativan 2 mg po QID for alcohol withdrawal, decreased to 2 mg po q8 on 07/15/18 and then to 1 mg po q8 as VSS on 07/18/18. Further decreased to 1 mg amhs on 07/19/18. Plan to c/w taper over the weekend--> decreased to 1 mg HS on monday07/21/18. Plan to d/c by Monday. * Consider naltrexone if patient is motivated/interested * Russel d/c'ed on 07/19/18 in favor of seroquel 25 mg po HS for continued reports of restless sleep. Seroquel 25 mg po HS was increased to 50 mg po HS for restless sleep on 07/20/18 Please refer to ER report and medical reports from medical admission 07/12/18- 07/13/18 for ROS and physical exam findings. * Admission labs: new floor lab results noted below: Laboratory Results - last 24 hr 07/15/18 11:16 Sodium 138 Potassium 4.0 Chloride 102 Carbon Dioxide 29 Anion Gap 11 BUN 21 Creatinine 0.9 Est GFR ( Amer) > 60 Est GFR (Non-Af Amer) > 60 Random Glucose 97 Calcium 8.9 Total Bilirubin 0.3 AST 109 H ALT 107 H Alkaline Phosphatase 76 Total Protein 6.3 Albumin 3.7 Globulin 2.6 Albumin/Globulin Ratio 1.5
[2018-07-23] MEDS: Pantoprazole 40 mg EC Tab PO SCH (06:20)
[2018-07-23 06:59] VITALS: RESP 18
[2018-07-23] MEDS: Multivitamin Therapeutic Tab PO SCH (08:23)
--- NOTE | 2018-07-23 08:50 | PCM.PYCHPN ---
Psychiatric Progress Note - Psychiatric Progress Note Patient seen today, length of contact: 25 min Problems Identified/Issues Discussed: History of Present Illness and Precipitating Events: Patient is a 58 yo male, primarily Rwandan-speaking with history of Mood Spectrum Disorder, Alcohol Use Disorder, likely contribution of Substance- Induced Mood Disorder, no prior psychiatric admissions or SA who was transferred from the medical floor yesterday 07/13/18, for treatment of depression and continued treatment of alcohol withdrawal symptoms. Of note: patient was initially transferred from [facility] for a psychiatric admission however he was medically admitted from 07/12/18-07/13/[address] of the abdomen revealed colitis. Dr. Regalado consulted with him on 07/13/18 and implemented Celexa 10 mg po daily for depression and Sonata qhs for insomnia. He is also being treated for alcohol withdrawals. Patient expressed he was depressed and hopeless. Indicated that he was drinking a liter of vodka daily as a wish but he also had thoughts of jumping in front of traffic or grabbing a alumni relations officer's gun to shoot himself. Staff notes indicate that patient has been in good control and there have been no management issues since his arrival. Staff utilized [employer] librarian special collections #[id number] to communicate. This provider use ankush "speak and translate" to help with translation. Patient is depressed and reports that he drinks alcohol to cope with his depression. He doesn't have any hallucinations or suicidal thoughts at this time. He slept well and has been tolerating medications prescribed thus far. His comprehension of my questioning is good and responses are relevant. He doesn't appear to be in any physical distress however his affect is depressed and constricted, congruent to reported mood. PSYCHIATRIC HISTORY Denies prior psychiatric admissions or SA Patient had SI to slit his throat or jump in front of traffic in 2010 Possible admission to [facility], however this appears related to detox SOCIAL HISTORY Born and raised in [place]. . Patient has 4 children. PROGRESS NOTE 07/23/18 I reviewed recent notes. Patient continues to appear better groomed and brighter around the unit. He clearly recognizes me and acts friendly when I greet him. I utilize speak and translate ankush to help with macanese translation again. Patient is cooperative, calm and patient during this interaction. Easily comprehends use of the ankush and his responses remain relevant and consistent. Patient reports he is sleeping better and denies s/e from Seroquel or celexa. Patient reports that his mood is getting better, anxiety is generally under control. Patient doesn't appear anxious but affect is still constricted. More reactive and spontaneous than admission. He denies any incident of hallucinations and this provider and staff have not observed him responding to internal stimuli. He has no major complaints or concerns except for his disposition and requesting documentation to explain a missed court date while he was hospitalized. Patient denies any withdrawal symptoms at this time and he doesn't appear to be in any acute physical distress. He has been more visible and engaging more with other Rwandan-speaking patients. Diagnostic Results: Mood Spectrum Disorder r/o Major Depression, Severe Severe Alcohol Use Disorder Alcohol withdrawal Likely contribution of substance-induced mood disorder Medication Change: Yes (ativan discontinued) Medical Record Reviewed: Yes Mental Status Examination - Cognitive Function Orientation: Person, Place, Situation Attention: WNL Concentration: WNL Association: WNL Fund of Knowledge: Poor - Mood Mood: Depressed (reports improvement) - Affect Affect: Constricted (improved reactivity and spontaneity) - Speech Speech: Appropriate - Formal Thought Process Formal Thought Process: No Impairment (none noted at this time, though patient is preoccupied & guarded) - Suicidal Ideation Suicidal Ideation: No - Homicidal Ideation Homicidal Ideation: No Goal/Treatment Plan - Goal/Treatment Plan Progress Toward Problem(s) and Goals/Treatment Plan: * group, milieu and supportive tx * Appreciate f/u by Dr. Andre/Dr. Bernabe on 07/14/18 * Appreciate f/u by Dr. Almaraz on 07/17/18, addition of standing antihypertensive Norvasc 5 mg po daily 07/17/18. Will monitor VS closely, recent set noted below : Selected Entries 07/21/18 07/21/18 07/21/18 07:21 16:00 18:46 Temperature 98.0 F Pulse Rate 75 71 76 Respiratory 20 Rate Blood Pressure 114/76 138/80 163/87 H 07/22/18 07/22/18 07:00 16:00 Temperature 97.9 F Pulse Rate 69 77 Respiratory 20 Rate Blood Pressure 151/88 H 160/89 H * Celexa 10 mg po daily for depression--patient is tolerating well. Increased to 20 mg po daily on 07/17/18 for continued depression * Ativan 2 mg po QID for alcohol withdrawal, decreased to 2 mg po q8 on 07/15/18 and then to 1 mg po q8 as VSS on 07/18/18. Further decreased to 1 mg amhs on 07/19/18. Plan to c/w taper over the weekend--> decreased to 1 mg HS on monday07/21/18. d/c'ed on Monday07/23/18. * Consider naltrexone if patient is motivated/interested * Russel d/c'ed on 07/19/18 in favor of seroquel 25 mg po HS for continued reports of restless sleep. Seroquel 25 mg po HS was increased to 50 mg po HS for restless sleep on 07/20/18 Please refer to ER report and medical reports from medical admission 07/12/18- 07/13/18 for ROS and physical exam findings. * Admission labs: new floor lab results noted below: Laboratory Results - last 24 hr 07/15/18 11:16 Sodium 138 Potassium 4.0 Chloride 102 Carbon Dioxide 29 Anion Gap 11 BUN 21 Creatinine 0.9 Est GFR ( Amer) > 60 Est GFR (Non-Af Amer) > 60 Random Glucose 97 Calcium 8.9 Total Bilirubin 0.3 AST 109 H ALT 107 H Alkaline Phosphatase 76 Total Protein 6.3 Albumin 3.7 Globulin 2.6 Albumin/Globulin Ratio 1.5
[2018-07-24] MEDS: Pantoprazole 40 mg EC Tab PO SCH (06:21)
[2018-07-24 06:43] VITALS: BP 127/84; PULSE 72; TEMP 97.8
[2018-07-24] MEDS: Multivitamin Therapeutic Tab PO SCH (08:46)
== END 2018-07-24 14:52 | disposition home or self-care (01) | DRG 754 ==
LOC: PSYC 16:05
PROVIDERS: ADMIT Psychiatry & Neurology Psychiatry; ATTEND Psychiatry & Neurology Psychiatry
PROC: GZ3ZZZZ Medication Management (ICD-10-PCS; principal; 2018-07-14)
DX: F32.9 Major depressive disorder, single episode, unspecified (principal); R45.851 Suicidal ideations; F10.239 Alcohol dependence with withdrawal, unspecified; I10 Essential (primary) hypertension; K52.9 Noninfective gastroenteritis and colitis, unspecified; F41.9 Anxiety disorder, unspecified; Z59.0 Homelessness; Z87.891 Personal history of nicotine dependence